=== PATIENT | female | born 1955 | race Caucasian/White ===

== ENCOUNTER → 2018-09-02 11:48 | Outpatient (CLI) | payer MEDICARE, SELFPAY ==
--- NOTE | 2018-09-02 | DI.MG.S_ITS ---
BILATERAL DIGITAL SCREENING MAMMOGRAM 3D/2D WITH CAD: 09/02/2018 CLINICAL: Routine screening. No prior exams were available for comparison. There are scattered fibroglandular elements in both breasts. Current study was also evaluated with a Computer Aided Detection (CAD) system. No significant masses, calcifications, or other findings are seen in either breast. IMPRESSION: NEGATIVE There is no mammographic evidence of malignancy. A 1 year screening mammogram is recommended. This exam was interpreted at Station ID: [id number]. NOTE: For mammograms, a report in lay terms will be sent to the patient. Approximately 15% of breast malignancies will not be visualized mammographically. In the management of a palpable breast mass, a negative mammogram must not discourage biopsy of a clinically suspicious lesion. Electronically Signed By: Lovely ro/harlan:09/02/2018 12:35:02 letter sent: Normal Exam ACR BI-RADS Category 1: Negative 3341F
== END ==
PROVIDERS: Visit Provider Student in an Organized Health Care Education/Training Program
DX: Z12.31 Encounter for screening mammogram for malignant neoplasm of breast (principal)
CPT/HCPCS: 77063; 77067

== ENCOUNTER → 2018-11-21 08:05 | Outpatient (CLI) | payer MEDICARE, SELFPAY ==
[2018-11-21 09:39] LABS: Alanine Aminotransferase 9 IU/L (9-52); Albumin 4.1 g/dL (3.5-5.0); Albumin Globulin Ratio 1.5 (1.0-2.8); Alkaline Phosphatase 63 U/L (38-126); Aspartate Aminotransferase 23 IU/L (14-36); BUN Creatinine Ratio 23.8 (6-22); Bilirubin Total 0.6 mg/dL (0.2-1.3); Blood Urea Nitrogen 19 mg/dL (7-17); Calcium 9.5 mg/dL (8.4-10.2); Carbon Dioxide 27 mmol/L (22-32); Chloride 105 mmol/L (98-107); Cholesterol 229 mg/dL (140-199); Estimated Glomerular Filt Rate > 60.0 mL/min (>60); Globulin 2.7 g/dL (1.7-4.1); Glucose 102 mg/dL (80-110); HDL Cholesterol 60 mg/dL (40-60); HEMOLYSIS < 15 (0-50); LDL Cholesterol Calculated 159 mg/dL (<100); Potassium 4.6 mmol/L (3.4-5.1); Sodium 139 mmol/L (137-145); Total Protein 6.8 g/dL (6.3-8.2); Triglycerides 50 mg/dL (35-150)
[2018-11-21 10:47] LABS: TSH w/ Reflex to FT4 1.53 uIU/mL (0.47-4.68)
== END ==
PROVIDERS: Visit Provider Student in an Organized Health Care Education/Training Program
DX: Z13.220 Encounter for screening for lipoid disorders (principal); Z13.228 Encounter for screening for other metabolic disorders
CPT/HCPCS: 36415; 80053; 80061; 84443

== ENCOUNTER 2018-12-14 07:25 | Day surgery (SDC) | payer MEDICARE, SELFPAY ==
[2018-12-14 07:43] VITALS: BMI 30.1
[2018-12-14 07:49] VITALS: BP 124/79; PULSE 52; RESP 17; TEMP 36.4; O2SAT 97
--- NOTE | 2018-12-14 08:33 | PM.HP.1 ---
History of Present Illness Chief complaint: [id number] SCREENING COLONOSCOPY Patient History Social History household members: none Family & Social History Social History: household members none Review of Systems Review of Systems All systems reviewed & are unremarkable except as noted in HPI and below Exam Vital Signs (past 8 hours): - 12/14/18 07:49 Temperature 97.6 F Pulse Rate 52 L Respiratory Rate 17 Blood Pressure 124/79 Pulse Oximetry 97 Oxygen Delivery Method Room Air Narrative Exam Narrative: Awake alert oriented x3, no acute distress, pupils round reactive to light, heart regular rate rhythm, lungs clear, abdomen nondistended nontender active bowel sounds, no lower extremity edema Assessment & Plan Assessment & Plan narrative: Screening colonoscopy
[2018-12-14] MEDS: SODIUM CHLORIDE 0.9% 1,000 ML 200 ML IV (08:38)
[2018-12-14] MEDS: fentaNYL 250 MCG/5 ML INJ IV (08:55)
[2018-12-14] MEDS: MIDAZOLAM 5 MG/5 ML VIAL IV (08:56)
--- NOTE | 2018-12-14 09:01 | PM.OP.ENDO ---
Operative Date/Time/Diagnoses Date of procedure: 12/14/18 Procedure & Clinicians Study performed: Colonoscopy Moderate conscious sedation was administered by the endoscopy nurse and supervised by the endoscopist. The following parameters were monitored: Oxygen saturation, heart rate, blood pressure, and response to care. Sedation: 5 mg midazolam, 150 micro g fentanyl Indications: Screening colonoscopy. This is the patient's 1st screening colonoscopy Procedure Notes Procedure in detail: Prior to the procedure, history and physical was performed, and patient medications and allergies were reviewed. Preprocedure nursing history and assessment was reviewed. Patient identification and proposed procedure were verified by the physician and nurse in the procedure room. The physical status of the patient was reassessed after the procedure. After informed consent was obtained including risks, benefits, and alternatives, the scope was passed under direct vision. Throughout the procedure, the patient's blood pressure, pulse, and oxygen saturations were monitored continuously. The colonoscope was introduced through the anus and advanced to the cecum as identified by the appendiceal orifice and ileocecal valve. The patient tolerated the procedure well. Bowel prep was deemed inadequate to detect polyps greater than 5 mm. Perianal and digital rectal examination were normal. Retroflexion in the rectum was unrevealing There was a large amount of liquid and semi-solid stool throughout the entire colon characterized by seeds, nuts, and stool. Lavage was attempted but did not result in adequate clearance. Impression: Inadequate bowel prep No specimens collected Sedation minutes: 19 Complications: other (EBL none. No complications) Plan for aftercare: Repeat colonoscopy in 1 year for screening purposes. Utilize an extended bowel prep Resume home medications Resume previous diet Discharge home with escort
[2018-12-14 09:06] VITALS: BP 104/72; PULSE 53; RESP 12; TEMP 36.1; O2SAT 94
[2018-12-14 09:11] VITALS: BP 97/68; PULSE 52; RESP 11; O2SAT 95
[2018-12-14 09:17] VITALS: BP 105/67; PULSE 54; RESP 10; TEMP 36.3; O2SAT 96
== END 2018-12-14 09:36 | disposition home or self-care (01) ==
PROVIDERS: PCP Student in an Organized Health Care Education/Training Program; Visit Provider Internal Medicine
PROC: 0DJD8ZZ Inspection of Lower Intestinal Tract, Via Natural or Artificial Opening Endoscopic (ICD-10-PCS; CPT 45378; principal; 2018-12-14 08:30)
DX: Z12.11 Encounter for screening for malignant neoplasm of colon (principal)
CPT/HCPCS: G0121; J2250; J3010

== ENCOUNTER → 2020-01-08 15:29 | Outpatient (CLI) | payer MEDICARE, SELFPAY ==
[2020-01-10 06:47] LABS: COVID19 Sendout Not Detected (Not Detect)
== END ==
PROVIDERS: PCP Student in an Organized Health Care Education/Training Program; Visit Provider Nurse Practitioner
DX: Z01.812 Encounter for preprocedural laboratory examination (principal)
CPT/HCPCS: 87635

== ENCOUNTER 2020-01-11 12:54 | Day surgery (SDC) | payer MEDICARE, SELFPAY ==
[2020-01-11 13:11] VITALS: BP 108/74; PULSE 67; RESP 16; TEMP 36.5; O2SAT 96; BMI 31.5
[2020-01-11] MEDS: LACTATED RINGERS 1,000 ML 200 ML IV (13:28)
--- NOTE | 2020-01-11 13:32 | PM.HP.1 ---
History of Present Illness History of Present Illness Date Patient Seen: 01/11/20 Time Patient Seen: 13:32 Chief complaint: [id number] SCREENING COLONOSCOPY Narrative: The patient presents for colorectal sreening. She had a previous attempted colonoscopy a year ago but was incomplete due to poor prep. No personal or family history of colon cancer. On further history denies any recent gastrointestinal symptoms. No nausea, vomiting, abdominal pain, loss of appetite, unexplained weight loss, change in bowel habits, diarrhea, constipation, melena, hematochezia, or bright red blood per rectum. Patient History Family & Social History Social History: household members none Tobacco & Substance use: Smoking Status Never smoker alcohol intake frequency a few times a month Substance Use Type does not use Meds Home Medications and Allergies Home Medications Medication Instructions Recorded Confirmed Type No Known Home Medications 12/14/18 01/11/20 History Allergies Allergy/AdvReac Type Severity Reaction Status Date / Time No Known Drug Allergies Allergy Verified 01/11/20 13:10 Review of Systems Review of Systems Narrative: A 10 point review of systems is negative except as noted in the HPI Exam Vital Signs (past 8 hours): - 01/11/20 13:11 Temperature 97.7 F Pulse Rate 67 Respiratory Rate 16 Blood Pressure 108/74 Pulse Oximetry 96 Oxygen Delivery Method Room Air Narrative Exam Narrative: General-no acute distress, well nourished HEENT-moist mucous membranes, no scleral icterus Neck-supple, no lymphadenopathy Chest- non labored respirations, clear to auscultation bilaterally Cardiac-regular rate no peripheral edema Abdomen-soft, nontender, non distended Extremities-warm, well perfused Neurological-alert and oriented, no focal deficits Assessment & Plan Assessment and plan (1) Screening for colon cancer: Status: Acute Assessment & Plan narrative: The patient requires colorectal screening and colonoscopy is recommended. Technical details were discussed. Risks, benefits, alternatives explained. Risks including but not limited to myocardial infarction, aspiration, bleeding, pain, missed lesion, incomplete examination, need for further radiographic studies, colonic perforation, and need for major abdominal surgery were discussed. All questions were answered to their satisfaction, and they are in agreement with this plan. COVID-19 COVID-19 status: Negative
--- NOTE | 2020-01-11 13:59 | PM.OP.ENDO ---
Operative Date/Time/Diagnoses Date of procedure: 01/11/20 Time of procedure: 14:00 Pre-op diagnosis: Screening colonoscopy Post-op diagnosis: same Procedure & Clinicians Study performed: Colonoscopy Same procedure as scheduled: Yes Indications: 64-year-old woman presents for routine screening colonoscopy Surgeon: Zhang Barker Procedure Notes SCOAP/Timeout: Performed Procedure in detail: Patient placed in left lateral decubitus position. Time out was performed. Procedural sedation was administered with Versed and Fentanyl. A rectal exam demonstrated no external hemorrhoids no internal masses. Colonoscopy scope was placed into the rectum and advanced through the colon to the cecum. The ileocecal valve was identified. The scope was then slowly withdrawn examining colon thoroughly in all directions. The colonoscopy was notable for the following 1. No masses or polyps 2. Quality of prep excellent Scope withdrawal time: 7 Sedation minutes: 17 Specimen(s): none sent Complications: none Impression: Normal colonoscopy Post-procedure Recommendations: Colonscopy in 10 years Disposition: same day surgery
[2020-01-11 14:00] VITALS: BP 97/68; PULSE 56; RESP 12; TEMP 36.6; O2SAT 95
[2020-01-11] MEDS: MIDAZOLAM 5 MG/5 ML VIAL IV (14:00)
[2020-01-11] MEDS: fentaNYL 250 MCG/5 ML INJ IV (14:01)
[2020-01-11 14:05] VITALS: BP 100/66; PULSE 55; RESP 12; O2SAT 94
[2020-01-11 14:10] VITALS: BP 100/64; PULSE 54; RESP 12; O2SAT 95
[2020-01-11 14:15] VITALS: BP 104/73; PULSE 66; RESP 18; O2SAT 95
== END 2020-01-11 14:25 | disposition home or self-care (01) ==
PROVIDERS: PCP Student in an Organized Health Care Education/Training Program; Referring Provider Student in an Organized Health Care Education/Training Program; Visit Provider Surgery
PROC: 0DJD8ZZ Inspection of Lower Intestinal Tract, Via Natural or Artificial Opening Endoscopic (ICD-10-PCS; CPT 45378; principal; 2020-01-11 13:45)
DX: Z12.11 Encounter for screening for malignant neoplasm of colon (principal)
CPT/HCPCS: G0121; 99152; J2250; J3010

== ENCOUNTER → 2021-01-02 11:50 | Outpatient (CLI) | payer OTHER, SELFPAY | PROVIDERS: PCP Student in an Organized Health Care Education/Training Program; Referring Provider Student in an Organized Health Care Education/Training Program; Visit Provider Student in an Organized Health Care Education/Training Program | DX: Z78.0 Asymptomatic menopausal state (principal); Z13.820 Encounter for screening for osteoporosis; M85.851 Other specified disorders of bone density and structure, right thigh | CPT/HCPCS: 77080 ==

== ENCOUNTER → 2022-01-16 11:23 | Outpatient (CLI) | payer OTHER, SELFPAY ==
--- NOTE | 2022-01-16 | DI.MG.S_ITS ---
BILATERAL DIGITAL SCREENING MAMMOGRAM 3D/2D WITH CAD: 01/16/2022 CLINICAL: Routine screening. Comparison is made to exam dated: 09/02/2018 mammogram - [facility]. There are scattered fibroglandular elements in both breasts. Current study was also evaluated with a Computer Aided Detection (CAD) system. There are benign calcifications in both breasts. No significant masses, calcifications, or other findings are seen in either breast. There has been no significant interval change. IMPRESSION: BENIGN There is no mammographic evidence of malignancy. A 1 year screening mammogram is recommended. Based on the Tyrer Cuzick model (a risk assessment model) the patient's lifetime risk is 6.2% and her 10 year risk is 3.4%. According to the ACR, ACS, and NCCN guidelines, an annual breast MRI exam along with mammogram is recommended if the patient's lifetime risk is 20% or greater. This exam was interpreted at Station ID: [id number]. NOTE: For mammograms, a report in lay terms will be sent to the patient. Approximately 15% of breast malignancies will not be visualized mammographically. In the management of a palpable breast mass, a negative mammogram must not discourage biopsy of a clinically suspicious lesion. Electronically Signed By: Diana marie/harlan:01/16/2022 16:28:15 letter sent: Normal Exam ACR BI-RADS Category 2: Benign Finding(s) 3342F
== END ==
PROVIDERS: PCP Student in an Organized Health Care Education/Training Program; Referring Provider Student in an Organized Health Care Education/Training Program; Visit Provider Student in an Organized Health Care Education/Training Program
DX: Z12.31 Encounter for screening mammogram for malignant neoplasm of breast (principal)
CPT/HCPCS: 77063; 77067

== ENCOUNTER → 2022-08-31 17:50 | Outpatient (CLI) | payer OTHER, SELFPAY | PROVIDERS: PCP Student in an Organized Health Care Education/Training Program; Visit Provider Registered Nurse | DX: R30.0 Dysuria (principal) | CPT/HCPCS: 87086 ==

== ENCOUNTER 2022-12-23 07:29 | Emergency (ER) | payer OTHER, SELFPAY ==
[2022-12-23] VITALS (101 sets, daily range): BP systolic 124–161; BP diastolic 67–96; PULSE 75–103; RESP 10–48; TEMP 36.4; O2SAT 88–95; BMI 29.4
--- NOTE | 2022-12-23 07:33 | ED.GENADULT ---
HPI - General Adult General Chief complaint: Shortness of Breath/Dyspnea Stated complaint: poss covid+ getting worse Time Seen by Provider: 12/23/22 07:32 History of Present Illness HPI narrative: 67F nonsmoker presents with family and the chief complaint of gradually worsening SOB over the past two weeks. She is short of breath sitting still and worse with exertion. She is had a persistent dry and hacking cough without any sputum production. She denies chest pain but feels tight. She is not dizzy or lightheaded has become generally weak. She has had subjective fever and chills along with body aches. About 2 weeks ago it started more with GI symptoms including nausea, vomiting and diarrhea which has resolved but the respiratory symptoms persist. She denies recent travel, history of blood clot, swelling of her lower extremities or other symptoms. She denies exposure to obviously ill people Related Data Allergies Allergy/AdvReac Type Severity Reaction Status Date / Time No Known Drug Allergies Allergy Verified 12/23/22 11:26 Review of Systems Review of Systems Narrative: GENERAL: See HPI HEENT: Denies sinus pain, ear pain, sore throat, difficulty swallowing, dizziness. RESPIRATORY: See HPI CARDIOVASCULAR: Denies chest pain, palpitations, orthopnea, edema, GASTROINTESTINAL: See HPI : Denies dysuria, frequency, incontinence, hematuria, urinary retention. MUSCULOSKELETAL: denies weakness, joint pain, or bony pain SKIN: Denies rash, skin lesions, or other NEUROLOGIC: Denies weakness, headache, numbness, change in speech, confusion, seizures, incoordination. PSYCHIATRIC: No concerning psychosocial issues. 12 point review of systems is negative except for those stated above Patient History Social History household members: none Smoking Status: Never smoker Smoking Status: Never smoker alcohol intake frequency: a few times a month Substance Use Type: does not use Exam Narrative Exam Narrative: GENERAL: [67] year old patient appears stated age. Well-developed patient, in mild distress. Conversational dyspnea is present, room air pulse ox dips into the upper 80s HEAD: Atraumatic. Normocephalic. EYES: Pupils equal round and reactive. Extraocular motions intact. No scleral icterus. No injection or drainage. ENT: Nose without bleeding, purulent drainage. Throat without erythema, tonsillar hypertrophy or exudate. Airway patent. NECK: Trachea midline. Non tender CARDIOVASCULAR: Regular rate and rhythm without murmurs, gallops, or rubs. RESPIRATORY: Clear to auscultation. Breath sounds equal bilaterally. No wheezes, rales, or rhonchi. There is some increased work of breathing as she develops conversational dyspnea GASTROINTESTINAL: Abdomen soft, non-tender, nondistended. EXTREMITIES: No edema or joint tenderness. BACK: Nontender without deformity or crepitance. No flank tenderness. NEURO: AOx3. SKIN: No rash or erythema of visible areas Initial Vital Signs Initial Vital Signs: Vital Signs Temperature 97.6 F 12/23/22 07:34 Pulse Rate 95 H 12/23/22 07:34 Respiratory Rate 18 12/23/22 07:34 Blood Pressure 134/67 12/23/22 07:34 Pulse Oximetry 91 12/23/22 07:34 Oxygen Delivery Method Room Air 12/23/22 07:34 Course Course Course Narrative: Orin Score for Pulmonary Embolism Complications from [facility] on 12/23/2022 All calculations should be rechecked by clinician prior to use RESULT SUMMARY: 4 points Orin Score Stage II Intermediate risk 18 % PE-related complications ( from PE, hemodynamic collapse, or recurrent nonfatal PE) at 30 days 6.8% PE-related mortality at 30 days INPUTS: Systolic BP ?> 0 = >100 mm Hg Elevated cardiac troponin ?> 2 = Yes RV dysfunction ?> 2 = Yes Heart rate, beats/min ?> 0 = <110 Simplified PESI (Pulmonary Embolism Severity Index) from [facility] on 12/23/2022 All calculations should be rechecked by clinician prior to use RESULT SUMMARY: High risk 8.9% risk of in the ?High? risk group (>0 points) INPUTS: Age, years ?> 0 = <=0 History of cancer ?> 1 = Yes History of chronic cardiopulmonary disease ?> 0 = No Heart rate, bpm ?> 0 = <110 Systolic BP, mmHg ?> 0 = >=00 O? saturation ?> 1 = <90% Orders Ordered: ED Orders 12/23/22 07:55 C-Reactive Protein Quant Stat Complete Blood Count AUTO DIFF Stat Comprehensive Metabolic Panel Stat D Dimer Stat Magnesium Stat NT-proBNP (BNP-Adult 18+) Stat PTT Partial Thromboplastin Arian Q6H Procalcitonin Stat Respiratory Panel (Film Array) Stat Troponin & CK Cardiac Panel Stat 12/23/22 08:38 ABG [Arterial Blood Gas] Stat 12/23/22 08:43 CT angio chest PE protocol Stat 12/23/22 15:30 PTT Partial Thromboplastin Arian Q6H 12/23/22 15:50 PTT Partial Thromboplastin Arian Stat 12/23/22 21:30 PTT Partial Thromboplastin Arian Q6H 12/24/22 03:30 PTT Partial Thromboplastin Arian Q6H 12/24/22 05:00 Hemoglobin and Hematocrit DAILY Platelet Count DAILY 12/25/22 05:00 Hemoglobin and Hematocrit DAILY Platelet Count DAILY Enoxaparin Sodium (Enoxaparin 100 Mg/Ml Syringe) 95 mg 1 mg/kg (95 mg) SUBCUT BID [facility] Last Admin: 12/23/22 13:08 Dose: 95 mg Documented By: CARLOS Discontinued Medications Enoxaparin Sodium (Enoxaparin 40 Mg/0.4 Ml Syringe) 95 mg 1 mg/kg (95 mg) SUBCUT BID [facility] Last Admin: 12/23/22 13:38 Dose: Not Given Documented By: CHRISTINE Heparin Sodium (Porcine) (Heparin 5,000 Unit/Ml Vial) 7,400 unit 80 unit/kg (7400 unit) IV NOW ONE Stop: 12/23/22 09:29 Last Admin: 12/23/22 09:49 Dose: 7,400 unit Documented By: CHRISTINE Heparin Sodium/Dextrose (Heparin Drip) 25,000 unit in 500 mls @ 24 mls/hr IV CONT MANNY; Protocol Last Titration: 12/23/22 11:55 Dose: 0 units/hr, 0 mls/hr Documented By: CARLOS Co-signed By: CHRISTINE Admin: 12/23/22 09:47 Dose: 1,200 units/hr, 24 mls/hr Documented By: CHRISTINE Co-signed By: CARLOS Consultations Consultation #2: call back from Dr. Moisés AMADOR (ICU ) agrees with need for transfer, it seems that they likely do have a bed available, request I speak with the hospitalist. hospitalist happy to accept in transfer Vital Signs Vital signs: Vital Signs - 8 hr 12/23/22 08:55 12/23/22 09:11 12/23/22 09:12 Pulse Rate 103 H Respiratory Rate Blood Pressure 151/77 H Pulse Oximetry 93 Oxygen Delivery Method Oxygen Flow Rate 12/23/22 09:12 12/23/22 09:15 12/23/22 09:20 Pulse Rate 97 H 95 H 97 H Respiratory Rate 40 H 35 H 21 Blood Pressure Pulse Oximetry 88 L 94 93 Oxygen Delivery Method Oxygen Flow Rate 12/23/22 09:25 12/23/22 09:30 12/23/22 09:30 Pulse Rate 94 H 96 H Respiratory Rate 38 H 33 H Blood Pressure 157/79 H Pulse Oximetry 92 92 Oxygen Delivery Method Nasal Cannula Nasal Cannula Oxygen Flow Rate 4 4 12/23/22 09:35 12/23/22 09:40 12/23/22 09:45 Pulse Rate 94 H 91 H 90 Respiratory Rate 37 H 21 30 H Blood Pressure Pulse Oximetry 93 94 92 Oxygen Delivery Method Oxygen Flow Rate 12/23/22 09:50 12/23/22 09:55 12/23/22 10:00 Pulse Rate 91 H 91 H 91 H Respiratory Rate 35 H 28 H 48 H Blood Pressure Pulse Oximetry 93 93 92 Oxygen Delivery Method Nasal Cannula Oxygen Flow Rate 4 12/23/22 10:02 12/23/22 10:02 12/23/22 10:05 Pulse Rate 92 H 94 H Respiratory Rate 29 H 41 H Blood Pressure 137/85 Pulse Oximetry 92 92 Oxygen Delivery Method Oxygen Flow Rate 12/23/22 10:10 12/23/22 10:15 12/23/22 10:20 Pulse Rate 90 89 82 Respiratory Rate 25 H 33 H 25 H Blood Pressure Pulse Oximetry 93 93 93 Oxygen Delivery Method Nasal Cannula Nasal Cannula Oxygen Flow Rate 4 4 12/23/22 10:25 12/23/22 10:30 12/23/22 10:30 Pulse Rate 82 84 Respiratory Rate 22 22 Blood Pressure 143/77 H Pulse Oximetry 93 92 Oxygen Delivery Method Oxygen Flow Rate 12/23/22 10:35 12/23/22 10:40 12/23/22 10:45 Pulse Rate 82 84 87 Respiratory Rate 32 H 28 H 34 H Blood Pressure Pulse Oximetry 93 93 94 Oxygen Delivery Method Nasal Cannula Oxygen Flow Rate 4 12/23/22 10:50 12/23/22 10:55 12/23/22 11:00 Pulse Rate 86 85 Respiratory Rate 33 H 34 H Blood Pressure 145/78 H Pulse Oximetry 95 95 Oxygen Delivery Method Oxygen Flow Rate 12/23/22 11:00 12/23/22 11:05 12/23/22 11:15 Pulse Rate 86 84 Respiratory Rate 27 H 30 H Blood Pressure 139/82 Pulse Oximetry 92 92 Oxygen Delivery Method Oxygen Flow Rate 12/23/22 11:15 12/23/22 11:20 12/23/22 11:25 Pulse Rate 85 93 H 97 H Respiratory Rate 29 H 29 H 29 H Blood Pressure Pulse Oximetry 95 94 94 Oxygen Delivery Method Nasal Cannula Oxygen Flow Rate 4 12/23/22 11:30 12/23/22 11:30 12/23/22 11:35 Pulse Rate 92 H 85 Respiratory Rate 22 29 H Blood Pressure 155/90 H Pulse Oximetry 90 L 94 Oxygen Delivery Method Nasal Cannula Nasal Cannula Oxygen Flow Rate 4 4 12/23/22 11:40 12/23/22 11:45 12/23/22 11:50 Pulse Rate 84 81 89 Respiratory Rate 29 H 36 H 36 H Blood Pressure Pulse Oximetry 93 93 91 Oxygen Delivery Method Oxygen Flow Rate 12/23/22 11:55 12/23/22 12:00 12/23/22 12:00 Pulse Rate 85 82 Respiratory Rate 35 H 40 H Blood Pressure 128/78 Pulse Oximetry 93 93 Oxygen Delivery Method Nasal Cannula Oxygen Flow Rate 4 12/23/22 12:05 12/23/22 12:15 12/23/22 12:20 Pulse Rate 85 86 87 Respiratory Rate 37 H Blood Pressure Pulse Oximetry 92 95 95 Oxygen Delivery Method Nasal Cannula Oxygen Flow Rate 4 12/23/22 12:25 12/23/22 12:30 12/23/22 12:30 Pulse Rate 86 85 Respiratory Rate 44 H Blood Pressure 128/96 H Pulse Oximetry 94 94 Oxygen Delivery Method Oxygen Flow Rate 12/23/22 12:35 12/23/22 12:40 12/23/22 12:45 Pulse Rate 86 83 84 Respiratory Rate 35 H 37 H 26 H Blood Pressure Pulse Oximetry 94 93 92 Oxygen Delivery Method Nasal Cannula Nasal Cannula Oxygen Flow Rate 4 4 12/23/22 12:50 12/23/22 12:55 12/23/22 13:00 Pulse Rate 86 86 Respiratory Rate 34 H 36 H Blood Pressure 161/82 H Pulse Oximetry 93 93 Oxygen Delivery Method Nasal Cannula Oxygen Flow Rate 4 12/23/22 13:00 12/23/22 13:05 12/23/22 13:10 Pulse Rate 83 82 81 Respiratory Rate 38 H 35 H 30 H Blood Pressure Pulse Oximetry 93 93 95 Oxygen Delivery Method Nasal Cannula Oxygen Flow Rate 4 12/23/22 13:15 12/23/22 13:20 12/23/22 13:25 Pulse Rate 82 82 82 Respiratory Rate 31 H 35 H 40 H Blood Pressure Pulse Oximetry 94 93 93 Oxygen Delivery Method Oxygen Flow Rate 12/23/22 13:30 12/23/22 13:30 12/23/22 13:35 Pulse Rate 81 84 Respiratory Rate 34 H 21 Blood Pressure 140/86 Pulse Oximetry 94 92 Oxygen Delivery Method Oxygen Flow Rate 12/23/22 13:40 12/23/22 13:45 12/23/22 13:50 Pulse Rate 82 80 80 Respiratory Rate 12 28 H 26 H Blood Pressure Pulse Oximetry 92 93 93 Oxygen Delivery Method Nasal Cannula Oxygen Flow Rate 4 12/23/22 13:55 12/23/22 14:00 12/23/22 14:00 Pulse Rate 79 81 Respiratory Rate 22 37 H Blood Pressure 128/81 Pulse Oximetry 93 93 Oxygen Delivery Method Oxygen Flow Rate 12/23/22 14:05 12/23/22 14:10 12/23/22 14:15 Pulse Rate 78 77 77 Respiratory Rate 29 H 25 H 25 H Blood Pressure Pulse Oximetry 94 93 93 Oxygen Delivery Method Oxygen Flow Rate 12/23/22 14:20 12/23/22 14:25 12/23/22 14:30 Pulse Rate 77 80 Respiratory Rate 26 H 26 H Blood Pressure 126/76 Pulse Oximetry 92 92 Oxygen Delivery Method Oxygen Flow Rate 12/23/22 14:40 12/23/22 14:45 12/23/22 14:55 Pulse Rate 79 78 77 Respiratory Rate 29 H 10 L 27 H Blood Pressure Pulse Oximetry 92 92 94 Oxygen Delivery Method Oxygen Flow Rate 12/23/22 15:00 12/23/22 15:00 12/23/22 15:05 Pulse Rate 80 80 Respiratory Rate 35 H 25 H Blood Pressure 124/78 Pulse Oximetry 94 93 Oxygen Delivery Method Nasal Cannula Nasal Cannula Oxygen Flow Rate 4 4 12/23/22 15:10 12/23/22 15:15 12/23/22 15:20 Pulse Rate 84 84 81 Respiratory Rate 31 H 32 H 37 H Blood Pressure Pulse Oximetry 94 94 94 Oxygen Delivery Method Oxygen Flow Rate 12/23/22 15:25 12/23/22 15:30 12/23/22 15:30 Pulse Rate 81 81 Respiratory Rate 30 H Blood Pressure 140/82 Pulse Oximetry 92 92 Oxygen Delivery Method Nasal Cannula Oxygen Flow Rate 4 12/23/22 15:35 12/23/22 15:40 12/23/22 15:45 Pulse Rate 82 79 79 Respiratory Rate 29 H 28 H 46 H Blood Pressure Pulse Oximetry 93 93 93 Oxygen Delivery Method Nasal Cannula Oxygen Flow Rate 4 12/23/22 15:50 12/23/22 15:55 12/23/22 16:00 Pulse Rate 75 76 Respiratory Rate 27 H 27 H Blood Pressure 131/79 Pulse Oximetry 93 93 Oxygen Delivery Method Nasal Cannula Oxygen Flow Rate 4 12/23/22 16:00 12/23/22 16:05 12/23/22 16:10 Pulse Rate 80 75 76 Respiratory Rate 38 H 34 H 34 H Blood Pressure Pulse Oximetry 93 93 93 Oxygen Delivery Method Nasal Cannula Oxygen Flow Rate 4 12/23/22 16:15 12/23/22 16:20 Pulse Rate 77 80 Respiratory Rate 30 H 38 H Blood Pressure Pulse Oximetry 93 94 Oxygen Delivery Method Oxygen Flow Rate Medical Decision Making Lab Data 12/23/22 07:55 12/23/22 07:55 Labs: Lab Results 12/23/22 12/23/22 12/23/22 Range/Units 07:55 07:55 07:55 WBC 11.2 H (4.5-11.0) X10^3/uL RBC 4.50 (4.0-5.2) X10^6/uL Hgb 13.1 (12.0-16.0) g/dL Hct 38.4 (36-46) % MCV 85.4 (80-100) fL MCH 29.0 (26-34) PG MCHC 34.0 (30-36) % RDW 13.0 (11.6-14.8) % Plt Count 279 (150-400) X10^3/uL Neut % (Auto) 81.5 H (50-75) % Lymph % (Auto) 10.7 L (25-40) % [place] % (Auto) 5.8 (3-14) % Eos % (Auto) 1.7 L (2-4) % Baso % (Auto) 0.3 (0-2) % Neut # (Auto) 9100 H (6735-4298) /uL Lymph # (Auto) 1200 (0572-2340) /uL [place] # (Auto) 600 (0-900) /uL Eos # (Auto) 200 (0-450) /uL Baso # (Auto) 0 (0-100) /uL APTT (26-36) SECONDS D-Dimer 90255 H (<500) ng/ml ABG pH (7.35-7.45) ABG pCO2 (35-45) mmHg ABG pO2 (80-100) mmHg ABG HCO3 (23-27) mmol/L ABG Total CO2 (23-27) mmol/L ABG O2 Saturation (95-100) % ABG Base Excess (-2-3) mmol/L FiO2 Sodium (137-145) mmol/L Potassium (3.4-5.1) mmol/L Chloride (98-107) mmol/L Carbon Dioxide (22-32) mmol/L BUN (7-17) mg/dL Creatinine (0.52-1.04) mg/dL Estimated GFR (>60) mL/min BUN/Creatinine Ratio (6-22) Glucose (80-110) mg/dL Calcium (8.4-10.2) mg/dL Magnesium (1.6-2.3) mg/dL Total Bilirubin (0.2-1.3) mg/dL AST (14-36) IU/L ALT (<35) IU/L Alkaline Phosphatase (38-126) U/L Total Creatine Kinase (30-135) U/L Troponin I (0.01-0.034) ng/mL C-Reactive Protein (<1.0) mg/dL NT-Pro-B Natriuret Pep (<125) pg/mL Total Protein (6.3-8.2) g/dL Albumin (3.5-5.0) g/dL Globulin (1.7-4.1) g/dL Albumin/Globulin Ratio (1.0-2.8) Procalcitonin 0.05 (<0.5) ng/mL Chlamy pneumoniae PCR (Not Detect) Adenovirus (PCR) (Not Detect) B. pertussis DNA (PCR) (Not Detecte) B.parapertussis DNA PCR (Not Detecte) Coronavirus OC43 (PCR) (Not Detect) Coronavirus HKU1 (PCR) (Not Detect) Coronavirus 229E (PCR) (Not Detect) SARS-CoV-2 (PCR) (Not Detecte) Coronavirus NL63 (PCR) (Not Detect) Human Metapneumovir PCR (Not Detect) Influenza Type A (PCR) (Not Detect) Influenza Type B (PCR) (Not Detect) M. pneumoniae (PCR) (Not Detect) Parainfluenza 1 (PCR) (Not Detect) Parainfluenza 2 (PCR) (Not Detect) Parainfluenza 3 (PCR) (Not Detect) Parainfluenza 4 (PCR) (Not Detect) RSV (PCR) (Not Detect) Entero/Rhino (PCR) (Not Detect) 12/23/22 12/23/22 12/23/22 Range/Units 07:55 07:55 07:55 WBC (4.5-11.0) X10^3/uL RBC (4.0-5.2) X10^6/uL Hgb (12.0-16.0) g/dL Hct (36-46) % MCV (80-100) fL MCH (26-34) PG MCHC (30-36) % RDW (11.6-14.8) % Plt Count (150-400) X10^3/uL Neut % (Auto) (50-75) % Lymph % (Auto) (25-40) % [place] % (Auto) (3-14) % Eos % (Auto) (2-4) % Baso % (Auto) (0-2) % Neut # (Auto) (5175-0394) /uL Lymph # (Auto) (6350-7893) /uL [place] # (Auto) (0-900) /uL Eos # (Auto) (0-450) /uL Baso # (Auto) (0-100) /uL APTT 31 (26-36) SECONDS D-Dimer (<500) ng/ml ABG pH (7.35-7.45) ABG pCO2 (35-45) mmHg ABG pO2 (80-100) mmHg ABG HCO3 (23-27) mmol/L ABG Total CO2 (23-27) mmol/L ABG O2 Saturation (95-100) % ABG Base Excess (-2-3) mmol/L FiO2 Sodium 135 L (137-145) mmol/L Potassium 3.9 (3.4-5.1) mmol/L Chloride 102 (98-107) mmol/L Carbon Dioxide 26 (22-32) mmol/L BUN 8 (7-17) mg/dL Creatinine 0.58 (0.52-1.04) mg/dL Estimated GFR > 60 (>60) mL/min BUN/Creatinine Ratio 13.8 (6-22) Glucose 125 H (80-110) mg/dL Calcium 9.2 (8.4-10.2) mg/dL Magnesium 2.2 (1.6-2.3) mg/dL Total Bilirubin 0.7 (0.2-1.3) mg/dL AST 29 (14-36) IU/L ALT 25 (<35) IU/L Alkaline Phosphatase 89 (38-126) U/L Total Creatine Kinase 30 (30-135) U/L Troponin I 0.106 H (0.01-0.034) ng/mL C-Reactive Protein 6.0 H (<1.0) mg/dL NT-Pro-B Natriuret Pep 87 (<125) pg/mL Total Protein 6.9 (6.3-8.2) g/dL Albumin 3.8 (3.5-5.0) g/dL Globulin 3.1 (1.7-4.1) g/dL Albumin/Globulin Ratio 1.2 (1.0-2.8) Procalcitonin (<0.5) ng/mL Chlamy pneumoniae PCR Not detected (Not Detect) Adenovirus (PCR) Not detected (Not Detect) B. pertussis DNA (PCR) Not detected (Not Detecte) B.parapertussis DNA PCR Not detected (Not Detecte) Coronavirus OC43 (PCR) Not detected (Not Detect) Coronavirus HKU1 (PCR) Not detected (Not Detect) Coronavirus 229E (PCR) Not detected (Not Detect) SARS-CoV-2 (PCR) Not detected (Not Detecte) Coronavirus NL63 (PCR) Not detected (Not Detect) Human Metapneumovir PCR Not detected (Not Detect) Influenza Type A (PCR) Not detected (Not Detect) Influenza Type B (PCR) Not detected (Not Detect) M. pneumoniae (PCR) Not detected (Not Detect) Parainfluenza 1 (PCR) Not detected (Not Detect) Parainfluenza 2 (PCR) Not detected (Not Detect) Parainfluenza 3 (PCR) Not detected (Not Detect) Parainfluenza 4 (PCR) Not detected (Not Detect) RSV (PCR) Not detected (Not Detect) Entero/Rhino (PCR) Not detected (Not Detect) 12/23/22 Range/Units 08:38 WBC (4.5-11.0) X10^3/uL RBC (4.0-5.2) X10^6/uL Hgb (12.0-16.0) g/dL Hct (36-46) % MCV (80-100) fL MCH (26-34) PG MCHC (30-36) % RDW (11.6-14.8) % Plt Count (150-400) X10^3/uL Neut % (Auto) (50-75) % Lymph % (Auto) (25-40) % [place] % (Auto) (3-14) % Eos % (Auto) (2-4) % Baso % (Auto) (0-2) % Neut # (Auto) (6011-5963) /uL Lymph # (Auto) (2072-6024) /uL [place] # (Auto) (0-900) /uL Eos # (Auto) (0-450) /uL Baso # (Auto) (0-100) /uL APTT (26-36) SECONDS D-Dimer (<500) ng/ml ABG pH 7.46 H (7.35-7.45) ABG pCO2 33.1 L (35-45) mmHg ABG pO2 66 L (80-100) mmHg ABG HCO3 24 (23-27) mmol/L ABG Total CO2 24 (23-27) mmol/L ABG O2 Saturation 94 L (95-100) % ABG Base Excess 0.0 (-2-3) mmol/L FiO2 36 Sodium (137-145) mmol/L Potassium (3.4-5.1) mmol/L Chloride (98-107) mmol/L Carbon Dioxide (22-32) mmol/L BUN (7-17) mg/dL Creatinine (0.52-1.04) mg/dL Estimated GFR (>60) mL/min BUN/Creatinine Ratio (6-22) Glucose (80-110) mg/dL Calcium (8.4-10.2) mg/dL Magnesium (1.6-2.3) mg/dL Total Bilirubin (0.2-1.3) mg/dL AST (14-36) IU/L ALT (<35) IU/L Alkaline Phosphatase (38-126) U/L Total Creatine Kinase (30-135) U/L Troponin I (0.01-0.034) ng/mL C-Reactive Protein (<1.0) mg/dL NT-Pro-B Natriuret Pep (<125) pg/mL Total Protein (6.3-8.2) g/dL Albumin (3.5-5.0) g/dL Globulin (1.7-4.1) g/dL Albumin/Globulin Ratio (1.0-2.8) Procalcitonin (<0.5) ng/mL Chlamy pneumoniae PCR (Not Detect) Adenovirus (PCR) (Not Detect) B. pertussis DNA (PCR) (Not Detecte) B.parapertussis DNA PCR (Not Detecte) Coronavirus OC43 (PCR) (Not Detect) Coronavirus HKU1 (PCR) (Not Detect) Coronavirus 229E (PCR) (Not Detect) SARS-CoV-2 (PCR) (Not Detecte) Coronavirus NL63 (PCR) (Not Detect) Human Metapneumovir PCR (Not Detect) Influenza Type A (PCR) (Not Detect) Influenza Type B (PCR) (Not Detect) M. pneumoniae (PCR) (Not Detect) Parainfluenza 1 (PCR) (Not Detect) Parainfluenza 2 (PCR) (Not Detect) Parainfluenza 3 (PCR) (Not Detect) Parainfluenza 4 (PCR) (Not Detect) RSV (PCR) (Not Detect) Entero/Rhino (PCR) (Not Detect) Urine Dip Bedside Urine Glucose Negative Bedside Urine Bilirubin - Negative Bedside Urine Ketone - Negative Urine Specific [place] 1.010 Bedside Urine Occult Blood - Negative Bedside Urine pH 6.0 Bedside Urine Protein - Negative Bedside Urine Urobilinogen - Negative Bedside Urine Nitrite - Negative Bedside Urine Leukocytes - Negative Esterase Point of care testing: Urine Dip Bedside Urine Glucose Negative Bedside Urine Bilirubin - Negative Bedside Urine Ketone - Negative Urine Specific [place] 1.010 Bedside Urine Occult Blood - Negative Bedside Urine pH 6.0 Bedside Urine Protein - Negative Bedside Urine Urobilinogen - Negative Bedside Urine Nitrite - Negative Bedside Urine Leukocytes - Negative Esterase MDM Narrative Medical decision making narrative: CC: 67-year-old female with increasing shortness of breath Complicating co-morbidities: Age Data collected from: Patient Medical records reviewed: Prior notes reviewed in our EMR Differential considered, but not limited to: COVID versus influenza versus pneumonia versus new onset CHF versus pulmonary embolism versus other Exam documented above, pertinent findings include: Patient is breathless and hypoxemic with increased work of breathing, heart rate is regular, lung sounds unremarkable, abdomen soft Lab Test results independently reviewed as above. 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 Today she is found to be conversationally dyspneic and hypoxemic, requiring nasal cannula at 4 L. in many ways labs are reassuring, however there is a slight troponin leak at 0.1 and critically elevated D-dimer which prompted investigation with CT angiogram which confirmed suspicion of pulmonary embolism. Given evidence of right heart strain it was clear that patient would need a larger facility with more access to specialty care. [facility] and hospitalist agree with the need for transfer and treatment plan thus far. Patient and family understand and agree with the diagnosis and plan Critical Care Time Critical Care Time Critical Care Time: Yes Total Critical Care Time: 45 Attestation: The high probability of a clinically significant, sudden or life threatening deterioration of the [CV] system(s) required my full and direct attention, intervention and personal management. The aggregate critical care time was [45] minutes. This time is in addition to time spent performing reported procedures but includes the following: [x] Data Review and interpretation [x] Patient assessment and monitoring of vital signs [x] Documentation [x] Medication orders and management Discharge Plan Departure Patient Disposition: [facility] Clinical Impression: Acute hypoxemic respiratory failure, Pulmonary embolism, Lung mass, Pleural effusion Referrals: Anabell Vasquez PA-C [Primary Care Provider] -
--- NOTE | 2022-12-23 07:41 | DI.RAD.S_ITS ---
PROCEDURE: XR CHEST 2V INDICATIONS: SOB TECHNIQUE: 2 views of the chest were acquired. COMPARISON: None. FINDINGS: Surgical changes and devices: None. Lungs and pleura: Small right pleural effusion. Opacity at the right apex. No pneumothorax. No significant left pleural effusion. Mediastinum: Mediastinal contours are normal. Heart size is normal. Bones and chest wall: No suspicious bony abnormalities. Soft tissues appear unremarkable. IMPRESSION: Right apex opacity. This could be due to pneumonia or accessory azygos fissure summation, or mass. This could be further evaluated with CT of the chest with IV contrast. Recommend follow-up to resolution. Small right pleural effusion. Dictated by: Americo Luther M.D. on 12/23/2022 at 8:18 Approved by: Americo Luther M.D. on 12/23/2022 at 8:22
[2022-12-23 08:09] LABS: Add Manual Diff / Slide Review NO; Basophils Absolute Auto 0 /uL (0-100); Basophils Percent Auto 0.3 % (0-2); Eosinophils Absolute Auto 200 /uL (0-450); Eosinophils Percent Auto 1.7 % (2-4); Hematocrit 38.4 % (36-46); Hemoglobin 13.1 g/dL (12.0-16.0); Lymphocytes Absolute Auto 1200 /uL (1100-4500); Lymphocytes Percent Auto 10.7 % (25-40); Mean Corpuscular Volume 85.4 fL (80-100); Monocytes Absolute Auto 600 /uL (0-900); Monocytes Percent Auto 5.8 % (3-14); Neutrophils Absolute Auto 9100 /uL (1500-7000); Neutrophils Percent Auto 81.5 % (50-75); Platelet Count 279 X10^3/uL (150-400); White Blood Cell Count 11.2 X10^3/uL (4.5-11.0)
[2022-12-23 08:11] LABS: HEMOLYSIS < 15 (0-50)
[2022-12-23 08:18] LABS: Alanine Aminotransferase 25 IU/L (<35); Albumin 3.8 g/dL (3.5-5.0); Albumin Globulin Ratio 1.2 (1.0-2.8); Alkaline Phosphatase 89 U/L (38-126); Aspartate Aminotransferase 29 IU/L (14-36); BUN Creatinine Ratio 13.8 (6-22); Bilirubin Total 0.7 mg/dL (0.2-1.3); Blood Urea Nitrogen 8 mg/dL (7-17); Calcium 9.2 mg/dL (8.4-10.2); Carbon Dioxide 26 mmol/L (22-32); Chloride 102 mmol/L (98-107); Creatine Kinase 30 U/L (30-135); Estimated Glomerular Filt Rate > 60 mL/min (>60); Globulin 3.1 g/dL (1.7-4.1); Glucose 125 mg/dL (80-110); Magnesium 2.2 mg/dL (1.6-2.3); Potassium 3.9 mmol/L (3.4-5.1); Sodium 135 mmol/L (137-145); Total Protein 6.9 g/dL (6.3-8.2)
[2022-12-23 08:27] LABS: NT-proBNP (BNP-Adult 18+) 87 pg/mL (<125)
[2022-12-23 08:29] LABS: Troponin I 0.106 ng/mL (0.01-0.034)
[2022-12-23 08:30] LABS: D Dimer 41624 ng/ml (<500)
[2022-12-23 08:33] LABS: Procalcitonin 0.05 ng/mL (<0.5)
--- NOTE | 2022-12-23 08:43 | DI.CT.S_ITS ---
PROCEDURE: CT ANGIO CHEST PE PROTOCOL INDICATIONS: SOB, hypoxemia, Dimer 41,000 TECHNIQUE: After the administration of intravenous contrast, 2 mm thick sections acquired from the pulmonary apices to the posterior costophrenic angles. 3-dimensional maximum intensity projection (MIP) coronal and sagittal reformats were then acquired through the thorax. For radiation dose reduction, the following was used: automated exposure control, adjustment of mA and/or kV according to patient size. COMPARISON: None. FINDINGS: Image quality: Excellent. Pulmonary arteries: There is extensive bilateral pulmonary emboli. The appearance of pulmonary embolus in the right lower lobe, which appears to be adherent to the wall with some central recanalization, suggests that it has been present for at least some period of time period there is expansile left lower lobe pulmonary arterial clot which appears acute. A clot on the left extends from the left main pulmonary artery. Lungs and pleura: Large spiculated right apical lung mass consistent with a primary bronchogenic carcinoma measuring approximately 6.2 x 3.5 cm. There is a large right pleural effusion with right basilar atelectasis. Central and peripheral airways are patent. Mediastinum: Overall heart size is normal. However, there is reversal of the normal RV LV ratio suggesting that there is likely a degree of right heart is strain. No mediastinal or hilar adenopathy. Shotty right hilar and mediastinal lymph nodes. Thoracic aorta is normal in caliber and enhancement. Esophagus is normal in caliber, without hiatal hernia. Bones and chest wall: No suspicious bony lesions. Ribs and thoracic spine appear intact throughout. Thyroid gland is unremarkable. No axillary or supraclavicular adenopathy. Abdomen: Question uncinate process pancreatic mass. This is not definite. IMPRESSION: 1. Large right apical lung mass consistent with primary bronchogenic carcinoma. 2. Extensive bilateral pulmonary emboli, some of which appears to likely have been present for some period of time. 3. Question uncinate process pancreas mass. 4. Large right pleural effusion. Underlying right basilar atelectasis. Dictated by: Denis Pickering M.D. on 12/23/2022 at 9:17 Approved by: Denis Pickering M.D. on 12/23/2022 at 9:26
[2022-12-23 08:55] LABS: Fractionated Inspired Oxygen 36; HCO3 ABG 24 mmol/L (23-27); Oxygen Saturation ABG 94 % (95-100); PCO2 ABG 33.1 mmHg (35-45); PO2 ABG 66 mmHg (80-100); TCO2 ABG 24 mmol/L (23-27)
[2022-12-23 08:56] LABS: pH ABG 7.46 (7.35-7.45)
[2022-12-23 08:58] LABS: Adenovirus Not Detected (Not Detect); B. parapertussis Not Detected (Not Detecte); Bordetella pertussis Not Detected (Not Detecte); Chlamydophila pneumoniae Not Detected (Not Detect); Coronavirus 229E Not Detected (Not Detect); Coronavirus HKU1 Not Detected (Not Detect); Coronavirus NL 63 Not Detected (Not Detect); Coronavirus OC43 Not Detected (Not Detect); Human Metapneumovirus Not Detected (Not Detect); Human Rhinovirus/Enterovirus Not Detected (Not Detect); Influenza A Not Detected (Not Detect); Influenza B Not Detected (Not Detect); Mycoplasma pneumoniae Not Detected (Not Detect); Parainfluenza Virus 1 Not Detected (Not Detect); Parainfluenza Virus 2 Not Detected (Not Detect); Parainfluenza Virus 3 Not Detected (Not Detect); Parainfluenza Virus 4 Not Detected (Not Detect); Respiratory Syncytial Virus Not Detected (Not Detect); SARS- CoV-2 Not Detected (Not Detecte)
[2022-12-23] MEDS: HEPARIN DRIP 25,000 UNIT/500 ML IV.SOLN 24 UNIT IV (09:47)
[2022-12-23] MEDS: HEPARIN 5,000 UNIT/ML VIAL 7400 UNIT IV (09:49)
[2022-12-23 09:59] LABS: PTT Partial Thromboplastin Tim 31 SECONDS (26-36)
--- NOTE | 2022-12-23 11:10 | PC.NURSE ---
FACILITIES MAINTENANCE SUPERVISOR Note: Attempting to find placement for pt transfer. Spoke with Jaylin from and Missy from [facility]/[place] and placed pt on their lists.
--- NOTE | 2022-12-23 11:36 | PC.NURSE ---
Patient has gotten up to BSC and oxygen saturation drops to 90% on 4L NC with up at bedside. Patients o2 returned to 95% at rest on 4LNC
[2022-12-23] MEDS: ENOXAPARIN 100 MG/ML SYRINGE 95 MG SUBCUT (13:08)
--- NOTE | 2022-12-23 14:52 | PC.NURSE ---
Addendum entered by Diane Medrano CNA 12/23/22 14:53: Accepted by Dr. Kaminski in ED. Original Note: JAYANT Note: Pt accepted at [facility]. [facility] ETA around 1600.
== END 2022-12-23 16:41 | disposition short-term general hospital (02) ==
PROVIDERS: Emergency Provider Emergency Medicine; PCP Student in an Organized Health Care Education/Training Program
DX: J96.01 Acute respiratory failure with hypoxia (principal); I26.99 Other pulmonary embolism without acute cor pulmonale; R91.8 Other nonspecific abnormal finding of lung field; J90 Pleural effusion, not elsewhere classified; Z20.822 Contact with and (suspected) exposure to COVID-19
CPT/HCPCS: 36415; 36600; 71046; 71275; 80053; 81003; 82550; 82805; 83735; 83880; 84145; 84484; 85025; 85379; 85730; 86140; 87633; 93005; 93010; 96365; 96366; 96372; 96375; 99285; J1644; J1650

== ENCOUNTER 2022-12-31 17:53 | Inpatient (IN) | payer OTHER, SELFPAY ==
[2022-12-31] VITALS (15 sets, daily range): BP systolic 99–131; BP diastolic 57–69; PULSE 66–89; RESP 18–26; TEMP 37.1; O2SAT 92–97; BMI 29.4
--- NOTE | 2022-12-31 18:13 | DI.RAD.S_ITS ---
PROCEDURE: XR CHEST 1V INDICATIONS: Shortness of breath TECHNIQUE: One view of the chest was acquired. COMPARISON: [facility], CT, CT ANGIO CHEST PE PROTOCOL, 12/23/2022, 8:53. [facility], CR, XR CHEST 2V, 12/23/2022, 7:47. FINDINGS: Surgical changes and devices: None. Lungs and pleura: Moderate right pleural effusion, increased since prior chest radiograph. Masslike opacity redemonstrated projecting over the medial right lung apex. Mediastinum: Mediastinal and hilar contours appear similar to before. Bones and chest wall: No suspicious bony lesions. Overlying soft tissues appear unremarkable. IMPRESSION: 1. Moderate right pleural effusion, increased. 2. Redemonstrated mass opacity medial right upper lung. Dictated by: Luiz Ye M.D. on 12/31/2022 at 19:38 Approved by: Luiz Ye M.D. on 12/31/2022 at 19:40
[2022-12-31 18:44] LABS: Add Manual Diff / Slide Review NO; Basophils Absolute Auto 0 /uL (0-100); Basophils Percent Auto 0.4 % (0-2); Eosinophils Absolute Auto 300 /uL (0-450); Eosinophils Percent Auto 3.3 % (2-4); Hematocrit 37.6 % (36-46); Hemoglobin 12.8 g/dL (12.0-16.0); Lymphocytes Absolute Auto 2500 /uL (1100-4500); Lymphocytes Percent Auto 25.4 % (25-40); Mean Corpuscular HGB Conc 33.9 % (30-36); Mean Corpuscular Hemoglobin 28.8 PG (26-34); Mean Corpuscular Volume 85.1 fL (80-100); Monocytes Absolute Auto 600 /uL (0-900); Monocytes Percent Auto 6.4 % (3-14); Neutrophils Absolute Auto 6400 /uL (1500-7000); Neutrophils Percent Auto 64.5 % (50-75); Platelet Count 384 X10^3/uL (150-400); Red Blood Cell Count 4.42 X10^6/uL (4.0-5.2); Red Cell Distribution Width 13.4 % (11.6-14.8); White Blood Cell Count 9.9 X10^3/uL (4.5-11.0)
[2022-12-31 18:46] LABS: INR 1.5 (0.9-1.3); Prothrombin Time 17.3 SECONDS (10.1-12.7)
[2022-12-31 18:49] LABS: Alanine Aminotransferase 21 IU/L (<35); Albumin 3.6 g/dL (3.5-5.0); Albumin Globulin Ratio 1.2 (1.0-2.8); Alkaline Phosphatase 75 U/L (38-126); Aspartate Aminotransferase 24 IU/L (14-36); BUN Creatinine Ratio 15.4 (6-22); Bilirubin Total 0.5 mg/dL (0.2-1.3); Blood Urea Nitrogen 10 mg/dL (7-17); Calcium 9.1 mg/dL (8.4-10.2); Carbon Dioxide 24 mmol/L (22-32); Chloride 106 mmol/L (98-107); Estimated Glomerular Filt Rate > 60 mL/min (>60); Globulin 3.1 g/dL (1.7-4.1); Glucose 134 mg/dL (80-110); HEMOLYSIS < 15 (0-50); Lactate (Lactic Acid) 0.9 mmol/L (0.7-2.1); Sodium 135 mmol/L (137-145); Total Protein 6.7 g/dL (6.3-8.2)
[2022-12-31 19:00] LABS: NT-proBNP (BNP-Adult 18+) 71 pg/mL (<125); Troponin I < 0.012 ng/mL (0.01-0.034)
--- NOTE | 2022-12-31 20:03 | DI.CT.S_ITS ---
PROCEDURE: CT ANGIO CHEST PE PROTOCOL INDICATIONS: chest pain TECHNIQUE: After the administration of intravenous contrast, 2 mm thick sections acquired from the pulmonary apices to the posterior costophrenic angles. 3-dimensional maximum intensity projection (MIP) coronal and sagittal reformats were then acquired through the thorax. For radiation dose reduction, the following was used: automated exposure control, adjustment of mA and/or kV according to patient size. COMPARISON: [facility], CR, XR CHEST 1V, 12/31/2022, 18:29. [facility], CT, CT ANGIO CHEST PE PROTOCOL, 12/23/2022, 8:53. FINDINGS: Image quality: Excellent. Pulmonary arteries: Multiple nonocclusive left pulmonary emboli are visualized within the left lower lobe. When compared with the study dated December 23, 2022, these have decreased in extent and number. The previous nonocclusive pulmonary emboli within the right lower lobe have now resolved. No findings to suggest new pulmonary embolus. Lungs and pleura: There is a new right apical pneumothorax when compared with the prior CT dated December 23, 2022. As before, there is a moderate-sized low-density right pleural effusion. Compressive atelectasis is present at the right lung base which is slightly increased in extent when compared with the prior study. The large spiculated mass within the right upper lobe is redemonstrated and appears similar in size to the prior study. As before, there is surrounding interlobular septal thickening suggesting lymphangitic carcinomatosis. No new acute airspace opacities. No left pleural effusion. Mediastinum: Heart size is normal, without pericardial effusion there are multiple shotty mediastinal and hilar nodes, some of which meet the pathologic size criteria of greater than 1 cm in diameter. Thoracic aorta is normal in caliber and enhancement. Esophagus is normal in caliber, without hiatal hernia. Bones and chest wall: No suspicious bony lesions. Ribs and thoracic spine appear intact throughout. Thyroid gland is unremarkable. No axillary or supraclavicular adenopathy. Abdomen: Visualized upper abdominal solid organs appear normal in the early arterial phase of enhancement. IMPRESSION: 1. Right apical pneumothorax which is new when compared with the CT dated December 23, 2022 and may be the etiology of the patient's chest pain. 2. Decreased burden of pulmonary embolus within the left pulmonary arteries and resolution of the right pulmonary emboli. No findings to suggest new pulmonary embolus or propagation of the existing thrombus. 3. 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 Dictated by: Lovely Jain M.D. on 12/31/2022 at 21:45 Approved by: Lovely Jain M.D. on 12/31/2022 at 21:51
[2022-12-31] MEDS: SODIUM CHLORIDE 0.9% 500 ML 1000 ML IV (20:22)
--- NOTE | 2022-12-31 20:25 | ED_ITS ---
HPI - General Adult General Chief complaint: Shortness of Breath/Dyspnea Stated complaint: painful breathing, stage 4 lung ca, back pain Time Seen by Provider: 12/31/22 19:52 Source: patient and family Mode of arrival: Wheelchair History of Present Illness HPI narrative: Patient brought here by daughter for complaints painful left posterior lung/mid back pain with deep breath. This occurred when she woke up from her nap around 3:00 a.m. or 4:00 a.m. this afternoon. She took 1 of her oxycodone and pain is much better now. Patient has been recently diagnosed December 23, 2022 and sent to [facility] on the same day from this emergency department for newly found lung cancer with bilateral pulmonary embolisms. Patient has not started lung cancer treatment due to pending cytology reports and results and communication between providers. Patient states she is been doing well after discharge home this past Wednesday. Has been walking slowly but not a lot of short of breath complaints. Or chest pain. Patient is on Eliquis for pulmonary embolisms. CT chest results below from December 23, 2022 Pulmonary arteries:? There is extensive bilateral pulmonary emboli.? The appearance of pulmonary embolus in the right lower lobe, which appears to be adherent to the wall with some central recanalization, suggests that it has been present for at least some period of time period there is expansile left lower lobe pulmonary arterial clot which appears acute.? A clot on the left extends from the left main pulmonary artery. ? Lungs and pleura:? Large spiculated right apical lung mass consistent with a primary bronchogenic carcinoma measuring approximately 6.2 x 3.5 cm.? There is a large right pleural effusion with right basilar atelectasis.? Central and peripheral airways are patent.? ? Mediastinum:? Overall heart size is normal.? However, there is reversal of the normal RV LV ratio suggesting that there is likely a degree of right heart is strain.? No mediastinal or hilar adenopathy.? Shotty right hilar and mediastinal lymph nodes.? Thoracic aorta is normal in caliber and enhancement.? Esophagus is normal in caliber, without hiatal hernia.? ? Bones and chest wall:? No suspicious bony lesions.? Ribs and thoracic spine appear intact throughout.? Thyroid gland is unremarkable.? No axillary or supraclavicular ronald opathy.? Related Data Allergies Allergy/AdvReac Type Severity Reaction Status Date / Time No Known Drug Allergies Allergy Verified 12/23/22 11:26 Review of Systems Review of Systems Narrative: GENERAL: negative chills, fatigue, malaise, fever, sweats. HEENT: negative sinus pain, ear pain, sore throat RESPIRATORY: negative dyspnea, cough CARDIOVASCULAR: negative chest pain, palpitations GASTROINTESTINAL: negative nausea, vomiting, abdominal pain : negative dysuria, frequency, hematuria MUSCULOSKELETAL: negative muscle or bony pain, positive back pain SKIN: negative rash, skin lesions NEUROLOGIC: negative weakness, numbness ROS Unobtainable: All systems reviewed & are unremarkable except as noted in HPI and below Patient History Social History household members: none Smoking Status: Never smoker Smoking Status: Never smoker alcohol intake frequency: holidays/special occasions only Substance Use Type: does not use Exam Narrative Exam Narrative: GENERAL: in no distress, not toxic not dyspneic HEAD: Normocephalic. EYES: Pupils equal round ENT: Mucous membranes moist. NECK: Trachea midline. CARDIOVASCULAR: Regular rate and rhythm without murmurs RESPIRATORY: Clear to auscultation. Breath sounds equal bilaterally. No wheezes, rales, or rhonchi. GASTROINTESTINAL: Abdomen soft, non-tender EXTREMITIES: No gross deformities. BACK: No flank tenderness. No CVA tenderness. No reproducible left posterior rib tenderness. But there is pain with deep breath in his area of lower posterior rib area. NEURO: AOx4. SKIN: Warm and dry PSYCH: Not anxious, is cooperative Initial Vital Signs Initial Vital Signs: Vital Signs Temperature 98.8 F 12/31/22 18:00 Pulse Rate 89 12/31/22 18:00 Respiratory Rate 18 12/31/22 18:00 Blood Pressure 115/65 12/31/22 18:00 Pulse Oximetry 97 12/31/22 18:00 Oxygen Delivery Method Room Air 12/31/22 18:00 Course Orders Ordered: ED Orders 12/31/22 20:03 CT angio chest PE protocol Stat Acetaminophen (Acetaminophen 325 Mg Tablet) 650 mg PO Q6H PRN PRN Reason: Fever/Mild Pain (1-3) Hydrocodone Bitart/Acetaminophen (Hydrocodone/Acet 5/325 Tablet) 2 tab PO Q4H PRN PRN Reason: Pain, Severe (5-10 Al Hydrox/Mg Hydrox/Simethicone (Mag Hydrox/Alum/Simeth 30 Ml Udc) 30 ml PO Q6HR PRN PRN Reason: Dyspepsia Calcium Carbonate (Calcium Carbonate 500 Mg Tab) 1,000 mg PO Q4HR PRN PRN Reason: Dyspepsia Naloxone HCl (Naloxone 0.4 Mg/Ml Vial) 0.2 mg IV Q2MIN PRN PRN Reason: Opiate Reversal Ondansetron HCl (Ondansetron 4 Mg/2 Ml Inj) 4 mg IV Q8HR PRN PRN Reason: Nausea And Vomiting Sennosides (Sennosides 8.6 Mg Tablet) 17.2 mg PO BEDTIME MANNY Discontinued Medications Sodium Chloride (Normal Saline 0.9%) 500 mls @ 1,000 mls/hr IV BOLUS ONE Stop: 12/31/22 20:32 Last Infusion: 12/31/22 22:10 Dose: 0 mls/hr Documented By: Infusion: 12/31/22 20:40 Dose: 1,000 mls/hr Documented By: Infusion: 12/31/22 20:22 Dose: 0 mls/hr Documented By: Admin: 12/31/22 20:22 Dose: 1,000 mls/hr Documented By: CARLOS Oxycodone/Acetaminophen (Oxycodone/Acetaminophen 5/325 Tablet) 1 tab PO NOW ONE Stop: 12/31/22 22:53 Last Admin: 12/31/22 23:03 Dose: 1 tab Documented By: CARLOS Vital Signs Vital signs: Vital Signs - 8 hr 12/31/22 20:00 12/31/22 20:00 12/31/22 20:35 Pulse Rate 74 81 Respiratory Rate 21 Blood Pressure 104/63 Pulse Oximetry 95 92 Oxygen Delivery Method Oxygen Flow Rate 12/31/22 20:39 12/31/22 20:39 12/31/22 21:00 Pulse Rate 73 Respiratory Rate 19 Blood Pressure 109/65 101/57 L Pulse Oximetry 95 Oxygen Delivery Method Room Air Oxygen Flow Rate 12/31/22 21:00 12/31/22 21:30 12/31/22 21:30 Pulse Rate 68 67 Respiratory Rate 21 21 Blood Pressure 103/61 Pulse Oximetry 93 93 Oxygen Delivery Method Room Air Room Air Oxygen Flow Rate 12/31/22 22:00 12/31/22 22:00 12/31/22 22:30 Pulse Rate 66 Respiratory Rate 18 Blood Pressure 99/59 L 112/61 Pulse Oximetry 93 Oxygen Delivery Method Room Air Oxygen Flow Rate 12/31/22 22:30 12/31/22 23:00 12/31/22 23:00 Pulse Rate 73 69 Respiratory Rate 22 21 Blood Pressure 109/67 Pulse Oximetry 95 97 Oxygen Delivery Method Nasal Cannula Nasal Cannula Oxygen Flow Rate 2 2 12/31/22 23:30 12/31/22 23:30 Pulse Rate 73 Respiratory Rate 26 H Blood Pressure 103/66 Pulse Oximetry 96 Oxygen Delivery Method Nasal Cannula Oxygen Flow Rate 2 Medical Decision Making Lab Data 12/31/22 18:20 12/31/22 18:20 Labs: Lab Results 12/31/22 12/31/22 12/31/22 Range/Units 18:20 18:20 18:20 WBC 9.9 (4.5-11.0) X10^3/uL RBC 4.42 (4.0-5.2) X10^6/uL Hgb 12.8 (12.0-16.0) g/dL Hct 37.6 (36-46) % MCV 85.1 (80-100) fL MCH 28.8 (26-34) PG MCHC 33.9 (30-36) % RDW 13.4 (11.6-14.8) % Plt Count 384 (150-400) X10^3/uL Neut % (Auto) 64.5 (50-75) % Lymph % (Auto) 25.4 (25-40) % [place] % (Auto) 6.4 (3-14) % Eos % (Auto) 3.3 (2-4) % Baso % (Auto) 0.4 (0-2) % Neut # (Auto) 6400 (9527-2426) /uL Lymph # (Auto) 2500 (5121-3102) /uL [place] # (Auto) 600 (0-900) /uL Eos # (Auto) 300 (0-450) /uL Baso # (Auto) 0 (0-100) /uL PT 17.3 H (10.1-12.7) SECONDS INR 1.5 H (0.9-1.3) Sodium 135 L (137-145) mmol/L Potassium 4.0 (3.4-5.1) mmol/L Chloride 106 (98-107) mmol/L Carbon Dioxide 24 (22-32) mmol/L BUN 10 (7-17) mg/dL Creatinine 0.65 (0.52-1.04) mg/dL Estimated GFR > 60 (>60) mL/min BUN/Creatinine Ratio 15.4 (6-22) Glucose 134 H (80-110) mg/dL Lactate (0.7-2.1) mmol/L Calcium 9.1 (8.4-10.2) mg/dL Magnesium (1.6-2.3) mg/dL Total Bilirubin 0.5 (0.2-1.3) mg/dL AST 24 (14-36) IU/L ALT 21 (<35) IU/L Alkaline Phosphatase 75 (38-126) U/L Troponin I < 0.012 (0.01-0.034) ng/mL NT-Pro-B Natriuret Pep 71 (<125) pg/mL Total Protein 6.7 (6.3-8.2) g/dL Albumin 3.6 (3.5-5.0) g/dL Globulin 3.1 (1.7-4.1) g/dL Albumin/Globulin Ratio 1.2 (1.0-2.8) 12/31/22 12/31/22 Range/Units 18:20 18:20 WBC (4.5-11.0) X10^3/uL RBC (4.0-5.2) X10^6/uL Hgb (12.0-16.0) g/dL Hct (36-46) % MCV (80-100) fL MCH (26-34) PG MCHC (30-36) % RDW (11.6-14.8) % Plt Count (150-400) X10^3/uL Neut % (Auto) (50-75) % Lymph % (Auto) (25-40) % [place] % (Auto) (3-14) % Eos % (Auto) (2-4) % Baso % (Auto) (0-2) % Neut # (Auto) (7767-6804) /uL Lymph # (Auto) (5328-6349) /uL [place] # (Auto) (0-900) /uL Eos # (Auto) (0-450) /uL Baso # (Auto) (0-100) /uL PT (10.1-12.7) SECONDS INR (0.9-1.3) Sodium (137-145) mmol/L Potassium (3.4-5.1) mmol/L Chloride (98-107) mmol/L Carbon Dioxide (22-32) mmol/L BUN (7-17) mg/dL Creatinine (0.52-1.04) mg/dL Estimated GFR (>60) mL/min BUN/Creatinine Ratio (6-22) Glucose (80-110) mg/dL Lactate 0.9 (0.7-2.1) mmol/L Calcium (8.4-10.2) mg/dL Magnesium 2.4 H (1.6-2.3) mg/dL Total Bilirubin (0.2-1.3) mg/dL AST (14-36) IU/L ALT (<35) IU/L Alkaline Phosphatase (38-126) U/L Troponin I (0.01-0.034) ng/mL NT-Pro-B Natriuret Pep (<125) pg/mL Total Protein (6.3-8.2) g/dL Albumin (3.5-5.0) g/dL Globulin (1.7-4.1) g/dL Albumin/Globulin Ratio (1.0-2.8) Imaging Data Chest x-ray: Radiologist's Impression: [address] [address] XRay Report Signed Patient: Brea Dior MR#: [id number] : 1955 Acct:[id number] Age/Sex: 67 / F Date of Service: 12/31/22 Loc: ED Accession Number: [id number] ?? Procedure: XR chest 1V Ordering Provider: Gallo Thomas MD PROCEDURE:? XR CHEST 1V ? INDICATIONS:? Shortness of breath ? TECHNIQUE:? One view of the chest was acquired.? ? COMPARISON:? [facility], CT, CT ANGIO CHEST PE PROTOCOL, 12/23/2022, 8:53.? [facility], CR, XR CHEST 2V, 12/23/2022, 7:47. ? FINDINGS:? ? Surgical changes and devices:? None.? ? Lungs and pleura:? Moderate right pleural effusion, increased since prior chest radiograph.? Masslike opacity redemonstrated projecting over the medial right lung apex. ? Mediastinum:? Mediastinal and hilar contours appear similar to before. ? Bones and chest wall:? No suspicious bony lesions.? Overlying soft tissues appear unremarkable.? ? IMPRESSION:? 1. Moderate right pleural effusion, increased. 2. Redemonstrated mass opacity medial right upper lung.? ? ? Dictated by: Luiz Ye M.D. on 12/31/2022 at 19:38 ? ? Approved by: Luiz Ye M.D. on 12/31/2022 at 19:40 ? CT scan - chest: Radiologist's Impression: [address] [address] [address] Scan Report Signed Patient: Brea Dior MR#: [id number] : 1955 Acct:[id number] Age/Sex: 67 / F Date of Service: 12/31/22 Loc: ED Accession Number: [id number] ?? Procedure: CT angio chest PE protocol Ordering Provider: Gallo Thomas MD PROCEDURE:? CT ANGIO CHEST PE PROTOCOL ? INDICATIONS:? chest pain ? TECHNIQUE:? After the administration of intravenous contrast, 2 mm thick sections acquired from the pulmonary apices to the posterior costophrenic angles.? 3-dimensional maximum i ntensity projection (MIP) coronal and sagittal reformats were then acquired through the thorax.? For radiation dose reduction, the following was used:? automated exposure control, adjustment of mA and/or kV according to patient size.? ? COMPARISON:? [facility], CR, XR CHEST 1V, 12/31/2022, 18:29.? [facility], CT, CT ANGIO CHEST PE PROTOCOL, 12/23/2022, 8:53. ? FINDINGS:? Image quality:? Excellent.? ? Pulmonary arteries:? Multiple nonocclusive left pulmonary emboli are visualized within the left lower lobe.? When compared with the study dated December 23, 2022, these have decreased in extent and number.? The previous nonocclusive pulmonary emboli within the right lower lobe have now resolved.? No findings to suggest new pulmonary embolus. ? Lungs and pleura:? There is a new right apical pneumothorax when compared with the prior CT dated December 23, 2022. As before, there is a moderate-sized low-density right pleural effusion.? Compressive atelectasis is present at the right lung base which is slightly increased in extent when compared with the prior study.? The large spiculated mass within the right upper lobe is redemonstrated and appears similar in size to the prior study.? As before, there is surrounding interlobular septal thickening suggesting lymphangitic carcinomatosis.? No new acute airspace opacities.? No left pleural effusion. ? Mediastinum:? Heart size is normal, without pericardial effusion there are multiple shotty mediastinal and hilar nodes, some of which meet the pathologic size criteria of greater than 1 cm in diameter.? Thoracic aorta is normal in caliber and enhancement.? Esophagus is normal in caliber, without hiatal hernia.? ? Bones and chest wall:? No suspicious bony lesions.? Ribs and thoracic spine appear intact throughout.? Thyroid gland is unremarkable.? No axillary or supraclavicular adenopathy.? ? Abdomen:? Visualized upper abdominal solid organs appear normal in the early arterial phase of enhancement.? ? IMPRESSION:? ? 1. Right apical pneumothorax which is new when compared with the CT dated December 23, 2022 and may be the etiology of the patient's chest pain. ? 2. Decreased burden of pulmonary embolus within the left pulmonary arteries and resolution of the right pulmonary emboli.? No findings to suggest new pulmonary embolus or propagation of the existing thrombus. ? 3. 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 ? ? Dictated by: Lovely Jain M.D. on 12/31/2022 at 21:45 ? ? Approved by: Lovely Jain M.D. on 12/31/2022 at 21:51 ? MDM Narrative Medical decision making narrative: Patient brought here by daughter for complaints painful left posterior lung/mid back pain with deep breath. This occurred when she woke up from her nap around 3:00 a.m. or 4:00 a.m. this afternoon. She took 1 of her oxycodone and pain is much better now. Patient has been recently diagnosed December 23, 2022 and sent [facility] on the same day from this emergency department for newly found lung cancer with bilateral pulmonary embolisms. Patient has not started lung cancer treatment due to pending cytology reports and results and communication between providers. Patient states she is been doing well after discharge home this past Wednesday. Has been walking slowly but not a lot of short of breath complaints. Or chest pain. Patient is on Eliquis for pulmonary embolisms. After history and exam CBC CMP troponin EKG CT chest chest x-ray [facility] CC: Back pain Complicating co-morbidities: Lung cancer pulmonary embolism Data collected from: Patient and daughter Medical records reviewed: December 23, 2022 ER visit here Differential considered: Includes but not limited to new lung mass/new blood clot/pneumothorax hemothorax Exam documented above, pertinent findings include: Reproducible left back pain with deep breath Lab Test results independently reviewed as above. Pertinent findings: WBC 9.9 hemoglobin 12.8 INR 1.5 sodium 135 potassium 4.0 troponin less than 0.012 Independently reviewed EKG normal sinus rhythm rate [address] elevation or depression Imaging studies independently reviewed: Chest x-ray no acute finding to explain left side pain CT chest, improve pulmonary emboli however new small right apical pneumothorax Consultations: I did speak with radiologist regarding pneumothorax. It is less than 5% on the right side. 10:20 p.m.. Spoke with general surgeon Dr. Rodas, recommends no chest tube at this time. Observe and treat conservatively, placed on nasal cannula and repeat chest x-ray in the morning. Admit to hospitalist. 11:48 p.m.. Spoke with hospitalist nurse practitioner, Keely, she will see patient for admission. Repeat x-ray of the chest in the morning. Treatments: Normal saline oxycodone Re-evaluations: Reviewed results with patient and daughter. They do understand need for admission. At this time no acute finding for source of left lower posterior lung pain. However overall blood clots have improved. They do understand need to observe for pneumothorax Discussion: Appropriate for admission for observation repeat chest x-ray in the morning. Patient placed on oxygen for treatment. Diagnosis: Acute pneumothorax Discharge Plan Departure Patient Disposition: Admitted as Observation Clinical Impression: Pneumothorax on right Admit Date/Time: 12/31/22 23:48 Admit Provider: Keely Dozier
[2022-12-31] MEDS: OXYCODONE/ACETAMINOPHEN 5/325 TABLET 1 TAB PO (23:03)
--- NOTE | 2023-01-01 | P.HP_ITS ---
History of Present Illness History of Present Illness Date Patient Seen: 01/01/23 Time Patient Seen: 00:00 Chief complaint: painful breathing, stage 4 lung ca, back pain Narrative: Brea Dior is a 67 yr old female with a history of recent diagnosis of stage IV bronchogenic carcinoma of the lung, and bilateral PEs 12/23/2022 (ED visit 12/23/2022 acute respiratory failure, bilateral PEs, lung CA, was transferred to ). Presented to the ED with complaints painful left posterior lung/mid back pain with deep breath.? Started this afternoon, pain medication in ED improved. Patient is due to start lung cancer treatment pending cytology reports and collaboration between Dr. Richards pulmonology @ and oncology.? Patient was started on Eliquis for pulmonary embolisms. Patient is not in acute respiratory failure. On admit pain medication has improved pain. patient denies headache, changes in vision, difficulty swallowing, speech impairment, weakness, numbness, tingling, difficulty with ambulation, recent falls, head injury, LOC, fever, body aches, chills, cough, recent exposure to illness, abdominal pain, nausea, vomiting, urinary incontinence/retention, dysuria, frequency, urgency, hematuria, bowel changes, constipation, incontinence, melena, rashes, recent injury, or trauma. Patient's vital signs are stable temp 98.8?, 112/61, 73, 22 95% on room air. Patient's labs are reassuringly unremarkable with the exception of INR 1.5. Lactate, troponin, BNP are all normal. I personally reviewed all imaging and EKG. EKG NSR at a rate of 80, incomplete right BBB, with nonspecific ST abnormalities unchanged from EKG on 12/23/2022. CTA:Right apical pneumothorax which is new when compared with the CT dated December 23, 2022, decreased burden of pulmonary embolus within the left pulmonary arteries and resolution of the right pulmonary emboli.? 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 Patient admitted for acute right pneumothorax. [facility] Family History Mother Alzheimer's dementia Father Cancer Social History (Updated 01/01/23 @ 03:55 by ERIC EnriquezBC) household members: none Smoking Status: Never smoker alcohol intake: current substance use type: does not use Meds Home Medications and Allergies Allergies Allergy/AdvReac Type Severity Reaction Status Date / Time No Known Drug Allergies Allergy Verified 12/23/22 11:26 Review of Systems Review of Systems Narrative: All 12 point systems reviewed with the patient and are negative except otherwise documented. Exam Vital Signs (past 8 hours): - 12/31/22 18:00 12/31/22 18:18 12/31/22 18:20 Temperature 98.8 F Pulse Rate 89 84 84 Respiratory Rate 18 23 20 Blood Pressure 115/65 Pulse Oximetry 97 94 93 Oxygen Delivery Method Room Air Oxygen Flow Rate 12/31/22 18:20 12/31/22 18:30 12/31/22 18:30 Temperature Pulse Rate 84 Respiratory Rate Blood Pressure 131/67 114/59 L Pulse Oximetry 93 Oxygen Delivery Method Oxygen Flow Rate 12/31/22 19:00 12/31/22 19:00 12/31/22 19:30 Temperature Pulse Rate 78 Respiratory Rate Blood Pressure 107/69 105/69 Pulse Oximetry 94 Oxygen Delivery Method Oxygen Flow Rate 12/31/22 19:30 12/31/22 20:00 12/31/22 20:00 Temperature Pulse Rate 75 74 Respiratory Rate 21 Blood Pressure 104/63 Pulse Oximetry 96 95 Oxygen Delivery Method Room Air Oxygen Flow Rate 12/31/22 20:35 12/31/22 20:39 12/31/22 20:39 Temperature Pulse Rate 81 73 Respiratory Rate 19 Blood Pressure 109/65 Pulse Oximetry 92 95 Oxygen Delivery Method Room Air Oxygen Flow Rate 12/31/22 21:00 12/31/22 21:00 12/31/22 21:30 Temperature Pulse Rate 68 Respiratory Rate 21 Blood Pressure 101/57 L 103/61 Pulse Oximetry 93 Oxygen Delivery Method Room Air Oxygen Flow Rate 12/31/22 21:30 12/31/22 22:00 12/31/22 22:00 Temperature Pulse Rate 67 66 Respiratory Rate 21 18 Blood Pressure 99/59 L Pulse Oximetry 93 93 Oxygen Delivery Method Room Air Room Air Oxygen Flow Rate 12/31/22 22:30 12/31/22 22:30 12/31/22 23:00 Temperature Pulse Rate 73 Respiratory Rate 22 Blood Pressure 112/61 109/67 Pulse Oximetry 95 Oxygen Delivery Method Nasal Cannula Oxygen Flow Rate 2 12/31/22 23:00 12/31/22 23:30 12/31/22 23:30 Temperature Pulse Rate 69 73 Respiratory Rate 21 26 H Blood Pressure 103/66 Pulse Oximetry 97 96 Oxygen Delivery Method Nasal Cannula Nasal Cannula Oxygen Flow Rate 2 2 Oxygen Delivery Method Nasal Cannula Oxygen Flow Rate 2 Narrative Exam Narrative: General: Patient is a jorge l female well-developed, well-nourished in no distress at this time. HEENT: Normocephalic, atraumatic, extraocular muscles intact, oral pharynx is clear and mucous membranes are moist. Neck is supple and symmetric, trachea is midline, no adenopathy, no thyroid enlargement, nontender, no masses palpated. Negative for JVD Chest: Normal AP diameter and contour without kyphoscoliosis, Equal chest rise without nasal flaring, retractions, tachypneic or labored breathing. Lungs: Auscultation of all lung [place] are clear decreased throughout, right lower lobe absent lung sounds, very shallow breathing, poor air exchange Cardio: regular rate and rhythm without murmur, rubs, or gallops, no carotid bruit, no cardiac pulsations present. Abdomen: Soft nontender, negative for organomegaly, or masses. Bowel sounds are present in all 4 quadrants without guarding or rebound, no CVA tenderness. Musculoskeletal: Muscle strength and tone are equal, no deformity, crepitus, effusions, cyanosis, clubbing or edema present. Full range of motion intact radial and pedal pulses are normal. Skin: Warm dry and intact without rashes, ulcerations or petechiae. Neuro: Alert and orientated x3, moves all extremities, sensation to touch intact, no gross deficits noted of cranial nerves. Psych: Patient has a well-kept appearance, appropriate affect, mental status attitude thought context and judgment are appropriate for age. Objective Labs 12/31/22 18:20 12/31/22 18:20 Labs: Laboratory Results - last 24 hr 12/31/22 12/31/22 12/31/22 18:20 18:20 18:20 WBC 9.9 RBC 4.42 Hgb 12.8 Hct 37.6 MCV 85.1 MCH 28.8 MCHC 33.9 RDW 13.4 Plt Count 384 Neut % (Auto) 64.5 Lymph % (Auto) 25.4 [place] % (Auto) 6.4 Eos % (Auto) 3.3 Baso % (Auto) 0.4 Neut # (Auto) 6400 Lymph # (Auto) 2500 [place] # (Auto) 600 Eos # (Auto) 300 Baso # (Auto) 0 PT 17.3 H INR 1.5 H Sodium 135 L Potassium 4.0 Chloride 106 Carbon Dioxide 24 BUN 10 Creatinine 0.65 Estimated GFR > 60 BUN/Creatinine Ratio 15.4 Glucose 134 H Lactate Calcium 9.1 Total Bilirubin 0.5 AST 24 ALT 21 Alkaline Phosphatase 75 Troponin I < 0.012 NT-Pro-B Natriuret Pep 71 Total Protein 6.7 Albumin 3.6 Globulin 3.1 Albumin/Globulin Ratio 1.2 12/31/22 18:20 WBC RBC Hgb Hct MCV MCH MCHC RDW Plt Count Neut % (Auto) Lymph % (Auto) [place] % (Auto) Eos % (Auto) Baso % (Auto) Neut # (Auto) Lymph # (Auto) [place] # (Auto) Eos # (Auto) Baso # (Auto) PT INR Sodium Potassium Chloride Carbon Dioxide BUN Creatinine Estimated GFR BUN/Creatinine Ratio Glucose Lactate 0.9 Calcium Total Bilirubin AST ALT Alkaline Phosphatase Troponin I NT-Pro-B Natriuret Pep Total Protein Albumin Globulin Albumin/Globulin Ratio Assessment & Plan Assessment & Plan narrative: Brea Dior is a 67 yr old female with a history of recent diagnosis of stage IV bronchogenic carcinoma of the lung, and bilateral PEs 12/23/2022 (ED visit 12/23/2022 acute respiratory failure, bilateral PEs, lung CA, was transferred to ). Presented to the ED with complaints painful left posterior lung/mid back pain with deep breath.? Started this afternoon, pain medication in ED improved. Patient is due to start lung cancer treatment pending cytology reports and collaboration between Dr. Richards pulmonology @ and oncology.? Patient was started on Eliquis for pulmonary embolisms. Patient admitted for new acute right pneumothorax. Pneumothorax right, acute,<5%, present on admission * Admit: 98.8?, 112/61, 73, 22 95% on room air. * CTA:Right apical pneumothorax which is new when compared with the CT dated December 23, 2022 * Dr. Rodas consulted general surgery stated that pneumothorax<5%, and given the patient is on Eliquis no chest tube is recommended * Repeat CXR in a.m. * Recommend Dr. Khan to reach out to Dr. Richards pulmonology at tomorrow to discuss patient's current hospitalization. * Incentive spirometry, encourage deep breathing, respiratory consult as needed * Manage pain Bilateral PEs, acute, present on admission * Diagnosed on 12/23/2022 * Patient on Eliquis * CTA: decreased burden of pulmonary embolus within the left pulmonary arteries and resolution of the right pulmonary emboli. * Monitor for bleeding Bronchogenic carcinoma, acute, stage IV, present on admission * Diagnosed 12/23/2022 * Managed by Dr. 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 Pleural effusion, acute, present on admission * Diagnosed 12/23/2022 * CTA: Low-density right effusion redemonstrated and unchanged * Managed by pulmonology Dr. Kaplan Overweight, moderate, acute on chronic, present on admission * As evidence by BMI 29.4 * dietary consult ordered regarding nutritional education and information for dietary, lifestyle, exercise, and weight changes. * the patient is at much higher risk for medical and surgical complications due to obesity as it relates to chronic illnesses:, and acute illness. The patient's obesity increases the difficulty and complexity of medical and/or surgical interventions, management and increases the chances of poor outcome such as morbidity and mortality as well as impaired wound healing. Code status: Full Surrogate decision maker: Yesi Arguelles-daughter DVT/VTE prophylaxis: Eliquis and SCDs Disposition: Patient admitted for observation expected length of stay not to exceed 2 midnights I have utilized all available immediate resources to obtain, update, or review the patient's current medications. I confirmed that the patient's advanced care plan is present, Code status is documented and/or surrogate decision maker is listed in the patient's medical record. I have personally reviewed patient's chart notes from PCP, specialists, diagnostic imaging, and laboratory results.
[2023-01-01 00:05] VITALS: BMI 29.4
[2023-01-01 00:25] LABS: Magnesium 2.4 mg/dL (1.6-2.3)
[2023-01-01 00:30] VITALS: BP 99/55; PULSE 71; RESP 17; TEMP 36.4; O2SAT 95
[2023-01-01 04:00] VITALS: BP 97/57; PULSE 60; RESP 16; TEMP 36.1; O2SAT 96
[2023-01-01 06:12] LABS: Add Manual Diff / Slide Review NO; Basophils Absolute Auto 0 /uL (0-100); Basophils Percent Auto 0.8 % (0-2); Eosinophils Absolute Auto 300 /uL (0-450); Eosinophils Percent Auto 5.1 % (2-4); Hematocrit 33.9 % (36-46); Hemoglobin 11.5 g/dL (12.0-16.0); Lymphocytes Absolute Auto 2200 /uL (1100-4500); Lymphocytes Percent Auto 37.5 % (25-40); Mean Corpuscular HGB Conc 33.9 % (30-36); Mean Corpuscular Volume 85.4 fL (80-100); Monocytes Absolute Auto 500 /uL (0-900); Monocytes Percent Auto 8.3 % (3-14); Neutrophils Absolute Auto 2900 /uL (1500-7000); Neutrophils Percent Auto 48.3 % (50-75); Platelet Count 301 X10^3/uL (150-400); Red Blood Cell Count 3.97 X10^6/uL (4.0-5.2); Red Cell Distribution Width 13.4 % (11.6-14.8)
[2023-01-01 06:17] LABS: INR 1.5 (0.9-1.3); Prothrombin Time 17.7 SECONDS (10.1-12.7)
--- NOTE | 2023-01-01 07:46 | DI.RAD.S_ITS ---
PROCEDURE: XR CHEST 1V INDICATIONS: right PTX seen on CT TECHNIQUE: One view of the chest was acquired. COMPARISON: [facility], CT, CT ANGIO CHEST PE PROTOCOL, 12/31/2022, 20:25. [facility], CR, XR CHEST 1V, 12/31/2022, 18:29. FINDINGS: Surgical changes and devices: None. Lungs and pleura: Right upper lobe masslike consolidation in medial right upper lobe is seen. Small to moderate right pleural effusion is again noted. Patient's known small right anterior pneumothorax is again seen measures 7.4 mm in craniocaudal dimension. No left-sided pneumothorax. Mediastinum: Mediastinal contours appear normal. Heart size is normal. Bones and chest wall: No suspicious bony lesions. Overlying soft tissues appear unremarkable. IMPRESSION: Persistent small to moderate right pleural effusion and tiny right apical pneumothorax. Dictated by: Raj Navarrete M.D. on 01/01/2023 at 8:08 Approved by: Raj Navarrete M.D. on 01/01/2023 at 8:10
[2023-01-01 08:00] VITALS: BP 106/69; PULSE 65; RESP 15; O2SAT 96
--- NOTE | 2023-01-01 08:30 | PC.NURSE ---
Day shift: Pt A&Ox4, sitting up in bed with adult daughter at bedside. VSS, pt reports taking home dose of apixaban 5 mg tablet from home prescription. This RN educated pt on use of prescriptions in hospital and the hospital policy that medications are required to be from the hospital pharmacy and ordered by provider. Provider notified. Pt verbalizes understanding on policy. Call light within reach, pt able to use to make needs known. Care ongoing.
--- NOTE | 2023-01-01 08:45 | PM.CALLCOV.1 ---
Call Coverage Note Note Date of Patient Contact: 01/01/23 Time of Patient Contact: 08:45 Narrative of Care Provided: Right PTX seen only on CT likely result of manipulations done at (biopsy). Stable pleural effusion. Repeat CXR shows no expansion. Ok to discharge home.
[2023-01-01 09:00] VITALS: TEMP 36.1
--- NOTE | 2023-01-01 09:01 | PM.DS.1 ---
History of Present Illness History of Present Illness Date Patient Seen: 01/01/23 Time Patient Seen: 09:01 Chief complaint: painful breathing, stage 4 lung ca, back pain Narrative: Brea Dior is a 67 yr old female with a history of recent diagnosis of stage IV bronchogenic carcinoma of the lung, and bilateral PEs 12/23/2022 (ED visit 12/23/2022 acute respiratory failure, bilateral PEs, lung CA, was transferred to ). Presented to the ED with complaints painful left posterior lung/mid back pain with deep breath.? Started this afternoon, pain medication in ED improved. Patient is due to start lung cancer treatment pending cytology reports and collaboration between Dr. Richards pulmonology @ and oncology.? Patient was started on Eliquis for pulmonary embolisms. Patient is not in acute respiratory failure. On admit pain medication has improved pain. patient denies headache, changes in vision, difficulty swallowing, speech impairment, weakness, numbness, tingling, difficulty with ambulation, recent falls, head injury, LOC, fever, body aches, chills, cough, recent exposure to illness, abdominal pain, nausea, vomiting, urinary incontinence/retention, dysuria, frequency, urgency, hematuria, bowel changes, constipation, incontinence, melena, rashes, recent injury, or trauma. Patient's vital signs are stable temp 98.8?, 112/61, 73, 22 95% on room air. Patient's labs are reassuringly unremarkable with the exception of INR 1.5. Lactate, troponin, BNP are all normal. I personally reviewed all imaging and EKG. EKG NSR at a rate of 80, incomplete right BBB, with nonspecific ST abnormalities unchanged from EKG on 12/23/2022. CTA:Right apical pneumothorax which is new when compared with the CT dated December 23, 2022, decreased burden of pulmonary embolus within the left pulmonary arteries and resolution of the right pulmonary emboli.? 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 Patient admitted for acute right pneumothorax. Discharge Providers Provider Date of admission: 12/31/22 23:48 Discharge Date: 01/01/23 Primary care physician: Anabell Vasquez PA-C Consults: 12/31/22 23:58 Consult to Dietitian, Adult Routine Comment: Reason For Exam: BMI 29.4, CA 01/01/23 03:57 Consult to General Surgery Routine Comment: Consulting Provider: Ivanna Rodas Reason for consultation: Pneumothorax w/bronchogenic carcinoma Has provider been notified: Yes Discharge provider: Fritz Khan DO Summary Hospital Course Discharge Diagnosis: ? Pneumothorax right, acute,<5%, present on admission Bilateral PEs, acute, present on admission Bronchogenic carcinoma, acute, stage IV, present on admission Pleural effusion, subacute (dx recently), present on admission Overweight, moderate, acute on chronic, present on admission Hospital Course: Brea Dior is a 67 yr old female with a history of recent diagnosis of stage IV bronchogenic carcinoma of the lung, and bilateral PEs 12/23/2022 (ED visit 12/23/2022 acute respiratory failure, bilateral PEs, lung CA, was transferred to ).? Presented to the ED with complaints painful left posterior lung/mid back pain with deep breath.?She was found to have a small pneumothorax on the R, likely secondary to recent thoracentesis. In discussion with family she did not have biopsies at after cytology returned positive for carcinoma. Repeat CXR was stable, and was reviewed personally, along with discussion with general surgery. With no expansion of her pneumothorax and improved symptoms, she improved more quickly than anticipated based on her presentation. She was discharged home and encouraged to follow up with her team at [facility] for ongoing management. Time Spent with Patient Time spent: Greater than 30 minutes Exam Vital Signs (past 8 hours): - 01/01/23 04:00 01/01/23 08:00 Temperature 97.0 F L Pulse Rate 60 65 Respiratory Rate 16 15 Blood Pressure 97/57 L 106/69 Pulse Oximetry 96 96 Oxygen Flow Rate 2 2 Oxygen Delivery Method Nasal Cannula Oxygen Flow Rate 2 Narrative Exam Narrative: General: no acute distress, comfortable appearing CV: RRR no m/r/g Pulm: Decreased breath sounds RLL, no wheezes rhonchi rales in other locations Ext: No edema Neuro: alert and oriented x3, no focal deficits. Objective Labs 01/01/23 06:01 12/31/22 18:20 Labs: Laboratory Results - last 24 hr 12/31/22 12/31/22 12/31/22 18:20 18:20 18:20 WBC 9.9 RBC 4.42 Hgb 12.8 Hct 37.6 MCV 85.1 MCH 28.8 MCHC 33.9 RDW 13.4 Plt Count 384 Neut % (Auto) 64.5 Lymph % (Auto) 25.4 [place] % (Auto) 6.4 Eos % (Auto) 3.3 Baso % (Auto) 0.4 Neut # (Auto) 6400 Lymph # (Auto) 2500 [place] # (Auto) 600 Eos # (Auto) 300 Baso # (Auto) 0 PT 17.3 H INR 1.5 H Sodium 135 L Potassium 4.0 Chloride 106 Carbon Dioxide 24 BUN 10 Creatinine 0.65 Estimated GFR > 60 BUN/Creatinine Ratio 15.4 Glucose 134 H Lactate Calcium 9.1 Magnesium Total Bilirubin 0.5 AST 24 ALT 21 Alkaline Phosphatase 75 Troponin I < 0.012 NT-Pro-B Natriuret Pep 71 Total Protein 6.7 Albumin 3.6 Globulin 3.1 Albumin/Globulin Ratio 1.2 12/31/22 12/31/22 01/01/23 18:20 18:20 06:01 WBC 6.0 RBC 3.97 L Hgb 11.5 L Hct 33.9 L MCV 85.4 MCH 29.0 MCHC 33.9 RDW 13.4 Plt Count 301 Neut % (Auto) 48.3 L Lymph % (Auto) 37.5 [place] % (Auto) 8.3 Eos % (Auto) 5.1 H Baso % (Auto) 0.8 Neut # (Auto) 2900 Lymph # (Auto) 2200 [place] # (Auto) 500 Eos # (Auto) 300 Baso # (Auto) 0 PT INR Sodium Potassium Chloride Carbon Dioxide BUN Creatinine Estimated GFR BUN/Creatinine Ratio Glucose Lactate 0.9 Calcium Magnesium 2.4 H Total Bilirubin AST ALT Alkaline Phosphatase Troponin I NT-Pro-B Natriuret Pep Total Protein Albumin Globulin Albumin/Globulin Ratio 01/01/23 06:01 WBC RBC Hgb Hct MCV MCH MCHC RDW Plt Count Neut % (Auto) Lymph % (Auto) [place] % (Auto) Eos % (Auto) Baso % (Auto) Neut # (Auto) Lymph # (Auto) [place] # (Auto) Eos # (Auto) Baso # (Auto) PT 17.7 H INR 1.5 H Sodium Potassium Chloride Carbon Dioxide BUN Creatinine Estimated GFR BUN/Creatinine Ratio Glucose Lactate Calcium Magnesium Total Bilirubin AST ALT Alkaline Phosphatase Troponin I NT-Pro-B Natriuret Pep Total Protein Albumin Globulin Albumin/Globulin Ratio PFSH Family History Mother Alzheimer's dementia Father Cancer Social History (Updated 01/01/23 @ 03:55 by TESSA Enriquez) household members: none Smoking Status: Never smoker alcohol intake: current substance use type: does not use Discharge Plan Discharge Plan Patient Disposition: Home Provider Discharge Comment: You were admitted to the hospital with a pneumothorax. This was small and not expanding at all on repeat imaging. You can discharge home. Please let your oncology team know about your admission, and you can have them request our records. Discharge orders & Medications Prescriptions: Continued Eliquis 5 mg tablet 5 mg PO BID Patient Comments: TAKE TWO TABLETS BY MOUTH TWICE DAILY FOR 6 DAYS, THEN TAKE ONE TABLET TWICE A DAY THEREAFTER oxycodone 5 mg tablet 5 mg PO Q6H PRN (Reason: Pain (Scale Score 4-6)) Follow up/Referrals: Anabell Vasquez PA-C [Primary Care Provider] - Discharge Health Status Multidrug resistant organism: No MDRO Diet/Activity/Treatments Diet: Diet as Tolerated and Regular Activity: As tolerated Skin/Wound/Dressing Care Report to your healthcare provider any signs of infection, such as:: increased pain Visit Report/Discharge Packet Instructions: Pneumothorax, DI for Pneumothorax Stand Alone Forms: Patient Portal/API, Stroke Signs & Symptoms Discharge Data Primary Care Provider: Anabell Vasquez Discharges patient from system. Discharge Date/Time: 01/01/23 10:10
--- NOTE | 2023-01-01 10:36 | PC.NURSE ---
Discharge: Education provided, discharge paperwork provided and signed by pt. Questions answered. IV discontinued, telemetry removed. Pt VSS, able to ambulate in room. Pt wheeled via wheelchair by this RN and adult daughter to private vehicle at approximately 10:10.
== END 2023-01-01 10:10 | disposition home or self-care (01) | DRG 199 ==
LOC: ED 22:29 → AC 01-01 00:08
PROVIDERS: Admitting Provider Nurse Practitioner Family; Emergency Provider Emergency Medicine; PCP Student in an Organized Health Care Education/Training Program; Visit Provider Nurse Practitioner Family
DX: J93.9 Pneumothorax, unspecified (principal); I26.99 Other pulmonary embolism without acute cor pulmonale; J90 Pleural effusion, not elsewhere classified; C10.4 Malignant neoplasm of branchial cleft; E66.3 Overweight; Z79.01 Long term (current) use of anticoagulants; Z68.29 Body mass index [BMI] 29.0-29.9, adult
CPT/HCPCS: 36415; 71045; 71275; 80053; 83605; 83735; 83880; 84484; 85025; 85610; 93005; 99285; Q9967

== ENCOUNTER → 2023-02-09 12:44 | Outpatient (CLI) | payer OTHER, SELFPAY ==
[2023-02-09 13:38] LABS: Add Manual Diff / Slide Review NO; Basophils Absolute Auto 0 /uL (0-100); Basophils Percent Auto 0.3 % (0-2); Eosinophils Absolute Auto 400 /uL (0-450); Eosinophils Percent Auto 5.6 % (2-4); Hematocrit 40.7 % (36-46); Hemoglobin 13.6 g/dL (12.0-16.0); Lymphocytes Absolute Auto 1700 /uL (1100-4500); Lymphocytes Percent Auto 26.7 % (25-40); Mean Corpuscular HGB Conc 33.4 % (30-36); Mean Corpuscular Hemoglobin 28.9 PG (26-34); Mean Corpuscular Volume 86.5 fL (80-100); Monocytes Absolute Auto 400 /uL (0-900); Monocytes Percent Auto 5.9 % (3-14); Neutrophils Absolute Auto 3900 /uL (1500-7000); Neutrophils Percent Auto 61.5 % (50-75); Platelet Count 158 X10^3/uL (150-400); Red Blood Cell Count 4.71 X10^6/uL (4.0-5.2); Red Cell Distribution Width 14.7 % (11.6-14.8); White Blood Cell Count 6.3 X10^3/uL (4.5-11.0)
[2023-02-09 14:20] LABS: Alanine Aminotransferase 12 IU/L (<35); Albumin Globulin Ratio 1.3 (1.0-2.8); Alkaline Phosphatase 71 U/L (38-126); Aspartate Aminotransferase 22 IU/L (14-36); Bilirubin Total 0.6 mg/dL (0.2-1.3); Blood Urea Nitrogen 9 mg/dL (7-17); Calcium 9.5 mg/dL (8.4-10.2); Carbon Dioxide 26 mmol/L (22-32); Chloride 104 mmol/L (98-107); Estimated Glomerular Filt Rate > 60 mL/min (>60); Glucose 102 mg/dL (80-110); HEMOLYSIS < 15 (0-50); Potassium 4.1 mmol/L (3.4-5.1); Sodium 135 mmol/L (137-145)
[2023-02-11 11:19] LABS: Acetylcholine Receptor Bind AB <0.03 nmol/L (0.00-0.24)
== END ==
PROVIDERS: PCP Student in an Organized Health Care Education/Training Program; Referring Provider Psychiatry & Neurology Neurology; Visit Provider Psychiatry & Neurology Neurology
DX: H53.2 Diplopia (principal); C34.90 Malignant neoplasm of unspecified part of unspecified bronchus or lung
CPT/HCPCS: 36415; 80053; 83519; 85025

== ENCOUNTER → 2023-02-12 08:56 | Outpatient (CLI) | payer OTHER, SELFPAY ==
--- NOTE | 2023-02-12 | DI.RAD.S_ITS ---
PROCEDURE: XR CHEST 2V INDICATIONS: Malignant neoplasm of unspecified part of unspecified bronch TECHNIQUE: 2 views of the chest were acquired. COMPARISON: [facility], CT, CT ANGIO CHEST PE PROTOCOL, 12/31/2022, 20:25. [facility], CR, XR CHEST 1V, 01/01/2023, 7:42. [facility], CR, XR CHEST 1V, 12/31/2022, 18:29. FINDINGS: Surgical changes and devices: None. Lungs and pleura: Large right pleural effusion, increased. Streaky opacity at the right upper lobe. Right upper lobe mass is less conspicuous. No left pleural effusion. Left lung is clear. Mediastinum: Mediastinal contours are similar. Heart size is normal. Bones and chest wall: No suspicious bony abnormalities. Soft tissues appear unremarkable. IMPRESSION: Large right pleural effusion, increased. Right lung atelectasis. Right upper lobe mass is less conspicuous. Dictated by: Americo Luther M.D. on 02/12/2023 at 9:44 Approved by: Americo Luther M.D. on 02/12/2023 at 9:48
== END ==
PROVIDERS: PCP Student in an Organized Health Care Education/Training Program; Referring Provider Nurse Practitioner; Visit Provider Nurse Practitioner
DX: C34.90 Malignant neoplasm of unspecified part of unspecified bronchus or lung (principal); J90 Pleural effusion, not elsewhere classified; J98.11 Atelectasis
CPT/HCPCS: 71046

== ENCOUNTER → 2023-02-23 15:22 | Outpatient (CLI) | payer OTHER, SELFPAY ==
[2023-02-23 16:08] LABS: Add Manual Diff / Slide Review NO; Basophils Absolute Auto 0 /uL (0-100); Basophils Percent Auto 0.5 % (0-2); Eosinophils Absolute Auto 200 /uL (0-450); Eosinophils Percent Auto 3.6 % (2-4); Hematocrit 37.2 % (36-46); Hemoglobin 12.2 g/dL (12.0-16.0); Lymphocytes Absolute Auto 1500 /uL (1100-4500); Mean Corpuscular HGB Conc 32.7 % (30-36); Mean Corpuscular Hemoglobin 28.1 PG (26-34); Mean Corpuscular Volume 85.9 fL (80-100); Monocytes Absolute Auto 400 /uL (0-900); Monocytes Percent Auto 7.8 % (3-14); Neutrophils Absolute Auto 2500 /uL (1500-7000); Neutrophils Percent Auto 55.1 % (50-75); Platelet Count 149 X10^3/uL (150-400); Red Blood Cell Count 4.33 X10^6/uL (4.0-5.2); Red Cell Distribution Width 14.1 % (11.6-14.8); White Blood Cell Count 4.6 X10^3/uL (4.5-11.0)
[2023-02-23 16:31] LABS: Alanine Aminotransferase 10 IU/L (<35); Albumin 3.7 g/dL (3.5-5.0); Albumin Globulin Ratio 1.4 (1.0-2.8); Alkaline Phosphatase 56 U/L (38-126); Aspartate Aminotransferase 21 IU/L (14-36); BUN Creatinine Ratio 18.1 (6-22); Bilirubin Total 0.4 mg/dL (0.2-1.3); Blood Urea Nitrogen 13 mg/dL (7-17); Calcium 9.5 mg/dL (8.4-10.2); Carbon Dioxide 25 mmol/L (22-32); Chloride 105 mmol/L (98-107); Estimated Glomerular Filt Rate > 60 mL/min (>60); Globulin 2.7 g/dL (1.7-4.1); Glucose 88 mg/dL (80-110); HEMOLYSIS < 15 (0-50); Potassium 4.1 mmol/L (3.4-5.1); Sodium 136 mmol/L (137-145); Total Protein 6.4 g/dL (6.3-8.2)
== END ==
PROVIDERS: PCP Student in an Organized Health Care Education/Training Program; Referring Provider Nurse Practitioner; Visit Provider Nurse Practitioner
DX: C34.90 Malignant neoplasm of unspecified part of unspecified bronchus or lung (principal)
CPT/HCPCS: 36415; 80053; 85025

== ENCOUNTER 2023-03-18 17:21 | Emergency (ER) | payer OTHER, SELFPAY ==
[2023-03-18 17:25] VITALS: BP 163/79; PULSE 80; RESP 24; TEMP 36.8; O2SAT 96; BMI 28.0
--- NOTE | 2023-03-18 17:30 | DI.RAD.S_ITS ---
PROCEDURE: XR CHEST 1V INDICATIONS: Shortness of breath TECHNIQUE: One view of the chest was acquired. COMPARISON: [facility], CR, XR CHEST 2V, 02/12/2023, 9:04. FINDINGS: Surgical changes and devices: None. Lungs and pleura: Lungs are clear. No pneumothorax. No change in moderate right pleural effusion. Mediastinum: Mediastinal contours appear normal. Heart size is normal. Bones and chest wall: No suspicious bony lesions. Overlying soft tissues appear unremarkable. IMPRESSION: No change in moderate right pleural effusion. Dictated by: Yuval Raymond M.D. on 03/18/2023 at 17:53 Approved by: Yuval Raymond M.D. on 03/18/2023 at 17:54
[2023-03-18 17:36] VITALS: BP 130/73; PULSE 74; RESP 16; O2SAT 96
--- NOTE | 2023-03-18 17:38 | ED.SOB ---
HPI - SOB/Dyspnea General Chief Complaint: Shortness of Breath/Dyspnea Stated Complaint: difficulty breathing Time Seen by Provider: 03/18/23 17:24 Source: patient and family Mode of arrival: Ambulatory Limitations: no limitations History of Present Illness HPI Narrative: 67-year-old female with history stage IV lung cancer presents for shortness of breath. Patient states that she will occasionally fill up with fluid and has to have a thoracentesis. She is here today just for a chest x-ray to check the level of fluid in her lungs. She states that her right lung is usually 2/3 full of fluid regularly Related Data Home Medications Medication Instructions Recorded Confirmed apixaban 5 mg tablet (Eliquis) 5 mg PO BID 01/01/23 01/01/23 oxycodone 5 mg tablet 5 mg PO Q6H PRN Pain (Scale Score 01/01/23 01/01/23 4-6) Allergies Allergy/AdvReac Type Severity Reaction Status Date / Time No Known Drug Allergies Allergy Verified 03/18/23 17:30 Review of Systems Review of Systems Narrative: CONSTITUTIONAL- Denies: fever, chills, fatigue HEENT- Denies: sore throat, nosebleed, vision changes RESPIRATORY-reports: Shortness of breath Denies: cough, wheezing CARDIAC- Denies: chest pain, edema, orthopnea GI- Denies: abdominal pain, nausea, vomiting, constipation, diarrhea - Denies: frequency, dysuria, hematuria, flank pain MSK- Denies: extremity pain, extremity swelling, joint pain, joint swelling SKIN- Denies: rash, itching, burn, swelling NEUROLOGICAL- Denies: headache, numbness, weakness, dizziness PSYCHIATRIC- Denies: anxiety, depression, suicidal ideation, homicidal ideation Patient History Family History Mother Alzheimer's dementia Father Cancer Social History (Updated 01/01/23 @ 03:55 by TESSA Enriquez) household members: none Smoking Status: Never smoker alcohol intake: current substance use type: does not use Smoking Status: Never smoker alcohol intake frequency: holidays/special occasions only Substance Use Type: does not use Exam Initial Vital Signs Initial Vital Signs: Vital Signs Temperature 98.3 F 03/18/23 17:25 Pulse Rate 80 03/18/23 17:25 Respiratory Rate 24 03/18/23 17:25 Blood Pressure 163/79 H 03/18/23 17:25 Pulse Oximetry 96 03/18/23 17:25 Oxygen Delivery Method Room Air 03/18/23 17:25 Const: Awake, alert, no acute distress, nontoxic appearing Eyes: PERRL, EOMI, conjunctiva normal ENT: Atraumatic, dentition normal, mucous membranes moist Cardiac: regular rate, regular rhythm RESP: unlabored, decreased breath sounds right lower lobe GI: Atraumatic, soft, nontender, nondistended, no rebound, no guarding MSK: Atraumatic, full range of motion, pulses equal Skin: Warm, Dry, intact, no rashes Neuro: AO x3, CN II-XII grossly intact, moves all extremities Psych: affect normal, mood normal, not suicidal, not homicidal Course Orders Ordered: ED Orders 03/18/23 17:30 XR chest 1V Stat Complete Blood Count AUTO DIFF Stat Comprehensive Metabolic Panel Stat Lactate (Lactic Acid) Stat NT-proBNP (BNP-Adult 18+) Stat Prothrombin Time INR Stat Troponin I Stat Reevaluation(s) Reevaluation #1: XR reviewed with patient and daughter. Patient states that it is actually improved from her previous x-rays, of which she has record on her phone. I had a lengthy discussion with patient and her daughter at bedside. I stated that I was happy to do as much or as little of a workup as she would like for her shortness of breath. Patient states that she was told to come in because there was concern that her shortness of breath was caused by strain from her heart. I stated that I could not rule out strain on the heart without doing laboratory work. Patient states that she has been poked enough times for her blood work and she would prefer to not have any blood work done. She states that she has an upcoming appointment with her oncologist and her radiation oncologist within the week, she states that she will get all of her blood work then. She is reassured that her vital signs are normal in the emergency department and that her pleural effusion seems to be improved from prior. I strongly counseled the patient that if she feels worse or if anything changes that she and her daughter return immediately to the emergency department for repeat evaluation. Vital Signs Vital signs: Vital Signs - 8 hr 03/18/23 17:25 03/18/23 17:36 03/18/23 18:00 Temperature 98.3 F Pulse Rate 80 74 Respiratory Rate 24 16 Blood Pressure 163/79 H 130/73 133/79 Pulse Oximetry 96 96 Oxygen Delivery Method Room Air 03/18/23 18:00 Temperature Pulse Rate 71 Respiratory Rate 21 Blood Pressure Pulse Oximetry 94 Oxygen Delivery Method Room Air MDM - SOB/Dyspnea Differential Diagnosis Differential diagnosis: Likely congestive heart failure, community acquired pneumonia and asthma with exacerbation Discharge Plan Departure Patient Disposition: Home Clinical Impression: Pleural effusion, Dyspnea, Metastatic cancer Instructions: DI for Pleural Effusion Prescriptions: No Action Eliquis 5 mg tablet 5 mg PO BID Patient Comments: TAKE TWO TABLETS BY MOUTH TWICE DAILY FOR 6 DAYS, THEN TAKE ONE TABLET TWICE A DAY THEREAFTER oxycodone 5 mg tablet 5 mg PO Q6H PRN (Reason: Pain (Scale Score 4-6)) Referrals: Anabell Vasquez PA-C [Primary Care Provider] - Stand Alone Forms: Patient Portal/API
--- NOTE | 2023-03-18 17:57 | PC.NURSE ---
Patient and daughter requested no IV at this time due to upcoming lab appointments and wanting to minimize poking.
[2023-03-18 18:00] VITALS: BP 133/79; PULSE 71; RESP 21; O2SAT 94
== END 2023-03-18 18:14 | disposition home or self-care (01) ==
PROVIDERS: Emergency Provider Emergency Medicine; PCP Student in an Organized Health Care Education/Training Program
DX: J90 Pleural effusion, not elsewhere classified (principal); R06.00 Dyspnea, unspecified; C79.9 Secondary malignant neoplasm of unspecified site; Z79.01 Long term (current) use of anticoagulants
CPT/HCPCS: 71045; 93005; 99283; 99284

== ENCOUNTER 2024-09-30 21:33 | Emergency (ER) | payer OTHER, SELFPAY ==
[2024-09-30 21:35] VITALS: BP 136/75; PULSE 79; RESP 18; TEMP 36.5; O2SAT 99; BMI 27.0
--- NOTE | 2024-09-30 21:40 | DI.RAD.S_ITS ---
PROCEDURE: XR WRIST RT MIN 3V INDICATIONS: fall/wrist pain TECHNIQUE: 3 views of the wrist were acquired. COMPARISON: None. FINDINGS: Bones: Comminuted intra-articular distal radial fracture noted with mild angulation of the distal fracture fragment. Slightly distracted ulnar styloid fracture. Text osteopenia degenerative intercarpal changes. Soft tissues: No suspicious soft tissue calcifications. IMPRESSION: Comminuted angulated distal radial fracture with intra-articular involvement. Slightly distracted ulnar styloid fracture Approved by: Marcos Crews M.D. on 09/30/2024 at 21:21
--- NOTE | 2024-09-30 23:37 | ED.GENADULT ---
HPI - General Adult General Chief complaint: Extremity Injury, Upper Stated complaint: rt arm injury, poss broken wrist Time Seen by Provider: 09/30/24 22:05 Source: patient Mode of arrival: Ambulatory History of Present Illness HPI narrative: 69-year-old woman with a history of stage IV lung cancer, anticoagulated who had a fall on an outstretched right hand with the acute wrist pain. Comes in for further evaluation. She has no other injuries or concerns at this time. Related Data Home Medications Medication Instructions Recorded Confirmed oxycodone 5 mg tablet 5 mg PO Q6H PRN Pain (Scale Score 01/01/23 08/21/24 4-6) apixaban 5 mg tablet (Eliquis) 2.5 mg PO BID 08/21/24 08/21/24 osimertinib 80 mg tablet (Tagrisso) 80 mg PO DAILY 08/21/24 08/21/24 Allergies Allergy/AdvReac Type Severity Reaction Status Date / Time No Known Drug Allergies Allergy Verified 08/21/24 11:43 Review of Systems Review of Systems Narrative: Pertinent positive and negative findings as per HPI Patient History Medical History Hearing decreased Skin cancer Rosacea Abnormal chest xray (~2022) Tinnitus (~2000) Ovarian cyst (~2022) Kidney stones (~1995) Melanoma (~2023) Bronchogenic carcinoma (~2022) Surgical History Anesthesia History of tonsillectomy and adenoidectomy (~1958) History of tubal ligation (~01/1990) History of thoracentesis History of surgery (~03/2023) Family History Mother Alzheimer's dementia Father Cancer Brother Alcoholic Smoker Family estrangement Sister Knee pain Hip pain Grandfather History of heart disease Social History household members: none alcohol intake: current substance use type: does not use Smoking Status: Never smoker alcohol intake frequency: holidays/special occasions only Exam Initial Vital Signs Initial Vital Signs: Vital Signs Temperature 97.7 F 09/30/24 21:35 Pulse Rate 79 04/12/25 21:35 Respiratory Rate 18 09/30/24 21:35 Blood Pressure 136/75 09/30/24 21:35 Pulse Oximetry 99 09/30/24 21:35 Oxygen Delivery Method Room Air 09/30/24 21:35 General: Alert appropriate in no acute distress Respiratory: Able to speak in full sentences, no obvious respiratory distress Skin: No obvious rashes, warm and dry Neurologic: Grossly intact no obvious asymmetries or abnormalities Psych: appropriate insight and affect, cooperative Extremity: Slight deformity and tenderness of the right wrist. She is neurovascularly intact distal to that. No abrasions or contusions Course Orders Ordered: ED Orders 09/30/24 21:40 XR wrist RT min 3V Stat Vital Signs Vital signs: Vital Signs - 8 hr 09/30/24 21:35 Temperature 97.7 F Pulse Rate 79 Respiratory Rate 18 Blood Pressure 136/75 Pulse Oximetry 99 Oxygen Delivery Method Room Air Medical Decision Making MDM Narrative Medical decision making narrative: CC: Fall on outstretched hand Complicating co-morbidities: Stage IV lung cancer Data collected from: patient, friend Differential considered: Fracture, contusion, open fracture Exam documented above, pertinent findings include: Wrist tenderness, neurovascularly intact Imaging studies independently reviewed: Bones: Comminuted intra-articular distal radial fracture noted with mild angulation of the distal fracture fragment. Slightly distracted ulnar styloid fracture. Text osteopenia degenerative intercarpal changes. Soft tissues: No suspicious soft tissue calcifications. IMPRESSION: Comminuted angulated distal radial fracture with intra-articular involvement. Slightly distracted ulnar styloid fracture Approved by: Marcos Crews M.D. on 09/30/2024 at 21:21 Consultations: Sugar-tong splint placed on her right arm with right sling placed. She was neurovascularly intact pre and post placement. She is feeling comfortable with the immobility of the splint Discussion: 69-year-old woman with fall on an outstretched wrist sustaining comminuted angulated distal radius fracture with intra-articular involvement and slightly distracted ulnar styloid fracture. She is splinted, she has adequate pain medication at home secondary to lung cancer pain and declines any additional medication here in the emergency department. Recommended she follow up with [facility] for definitive treatment of her wrist fracture. She is given instructions and reasons to return to the emergency department. She is safe for discharge Discharge Plan Departure Patient Disposition: Home Clinical Impression: Closed fracture of right wrist Qualifiers: Encounter type: initial encounter Qualified Code(s): S62.101A - Fracture of unspecified carpal bone, right wrist, initial encounter for closed fracture Instructions: DI for Wrist Fracture Activity Restrictions/Additional Instructions: Thank you for coming in today I am sorry that you had this fall. You did break your right wrist and you are going to need to see an orthopedic surgeon for definitive treatment of this wrist. You may need surgical intervention, the surgeon will likely take additional x-rays with your follow up appointment and help decide whether this is necessary or not. You can use your Tylenol and oxycodone that you have available at home to use for pain control. Keeping the arm elevated and ice on the outside of the splint may also help with pain and swelling I would suggest calling [facility], office phone number is [phone]. Dr. Soto is our on-call orthopedic surgeon [facility]. Please explain that you are in the emergency department, had a fall on an outstretched wrist and have a wrist fracture that needs definitive treatment and follow up. If you find that you are getting worse or develop any new symptoms, please feel free to return to the emergency department for further evaluation. Prescriptions: No Action Tagrisso 80 mg tablet 80 mg PO DAILY oxycodone 5 mg tablet 5 mg PO Q6H PRN (Reason: Pain (Scale Score 4-6)) Eliquis 5 mg tablet 2.5 mg PO BID Referrals: Tami Lynn MD [Primary Care Provider] - Stand Alone Forms: Patient Portal/API/Survey
[2024-09-30 23:41] VITALS: BP 117/63; PULSE 74; RESP 16; O2SAT 96
== END 2024-09-30 23:48 | disposition home or self-care (01) ==
PROVIDERS: Emergency Provider Emergency Medicine; PCP Family Medicine
DX: S52.571A Other intraarticular fracture of lower end of right radius, initial encounter for closed fracture (principal); S52.611A Displaced fracture of right ulna styloid process, initial encounter for closed fracture; W18.30XA Fall on same level, unspecified, initial encounter; Z79.01 Long term (current) use of anticoagulants; Z85.118 Personal history of other malignant neoplasm of bronchus and lung
CPT/HCPCS: 29125; 73110; 99283

== ENCOUNTER → 2024-11-23 09:02 | Outpatient (CLI) | payer OTHER, SELFPAY ==
--- NOTE | 2024-11-23 09:06 | DI.ECHO.S_ITS ---
[facility] : : [address] : : [place] : : [id number] : : Phone: [phone] Echocardiogram Report + + :Name: JENNY BANGURA Study Date: 11/23/2024 Height: 69 in : :Hospital ReadingLocation: Weight: 188 lb : : Gender: Female BSA: 2.0 m2 : :: 1955 Age: 69 yrs BP: 108/67 mmHg: :Reason For Study: BRONCHOGENIC CARCINOMA, PE : :Ordering Physician: DEEPA, : :RADHA Zamora Performed By: Gely Jensen : :Referring: RADHA ARENAS : + + Interpretation Summary The ejection fraction is estimated to be 60-65%. Left ventricular global longitudinal strain average is -21.9%. Diastolic parameters suggest probable normal left ventricular diastolic function and normal filling pressures. The left atrium is mildly dilated. The right ventricle is normal in size and function. No significant valvular abnormalities. Pulmonary artery pressures cannot be estimated because of the lack of a measurable TR jet velocity but the IVC suggests a CVP of around 3 mmHg. Procedure: A two-dimensional transthoracic echocardiogram with color flow and Doppler was performed. The study quality was technically adequate. There is no prior echocardiogram noted for this patient. The patient was in sinus bradycardia with heart rates between 51-57 bpm during the exam. Left Ventricle: The left ventricle is normal in size and wall thickness. The ejection fraction is estimated to be 60-65%. Left ventricular global longitudinal strain average is -21.9%. Diastolic parameters suggest probable normal left ventricular diastolic function and normal filling pressures. Right Ventricle: The right ventricle is normal in size and function. Atria: The left atrium is mildly dilated. Right atrial size is normal. There is no Doppler evidence for an interatrial shunt. Mitral Valve: The mitral valve leaflets appear to open well. There is trace mitral regurgitation. Aortic Valve: The aortic valve is trileaflet. The aortic valve opens well. There is no aortic valve stenosis. There is trace aortic regurgitation. Tricuspid Valve: The tricuspid valve leaflets are thin and pliable. There is a trace or physiologic amount of tricuspid regurgitation. Pulmonary artery pressures cannot be estimated because of the lack of a measurable TR jet velocity but the IVC suggests a CVP of around 3 mmHg. Pulmonic Valve: The pulmonic valve is not well seen, but is grossly normal. There is a trace or physiologic amount of pulmonic regurgitation. Great Vessels: The aortic root is normal size. The ascending aorta could not be visualized. The IVC is of normal diameter and collapses greater than 50% with a sniff. This suggests a low right atrial pressure of 3 mm Hg. Pericardium/ Pleura There is no pericardial effusion. There is no pleural effusion. MMode/2D Measurements & Calculations LVIDd: 4.5 cm LVOT diam: 2.0 cm LVIDs: 3.0 cm Ao root diam: 3.4 cm FS: 32.6 % Ao Arch Diam (Prox Trans): 3.3 cm IVSd: 0.90 cm LVPWd: 0.77 cm LV kapadia. diameter/BSA (cm/m^2): 2.2 LV sys. diameter/BSA (cm/m^2): 1.5 LA A2 area: 24.7 cm2 RA long axis: 5.2 cm LA A4 area: 21.1 cm2 RA area: 18.9 cm2 LA length (vol): 5.5 cm RA vol: 57.8 ml LA vol: 80.7 ml RA : 28.7 ml/m2 LA vol index: 40.1 ml/m2 IVC diam: 1.6 cm RVD1 (basal): 4.0 cm RVD2 (mid): 3.0 cm TAPSE: 2.1 cm Doppler Measurements & Calculations Ao V2 max: 129.6 cm/sec LVOT Max Jairo: 119.7 cm/sec Ao V2 mean: 86.0 cm/sec LV V1 max P.7 mmHg Ao max P.7 mmHg LV V1 VTI: 27.0 cm Ao mean P.4 mmHg GENEVIEVE(I,D): 3.1 cm2 Ao V2 VTI: 28.2 cm GENEVIEVE(V,D): 3.0 cm2 sev ratio: 0.95 GENEVIEVE indexed to BSA (cm^2/m^2): 1.5 MV E max jairo: 64.4 cm/sec TR max jairo: 230.4 cm/sec MV A max jairo: 45.9 cm/sec TR max P.2 mmHg MV E/A: 1.4 PA V2 max: 89.3 cm/sec Med Peak E' Jairo: 12.7 cm/sec PA V2 mean: 65.5 cm/sec E/E' med: 5.1 PA mean P.8 mmHg Lat Peak E' Jairo: 13.5 cm/sec PA pr(Accel): 31.0 mmHg E/E' lat: 4.8 E/e' average: 4.9 MV dec time: 0.20 sec SV(LVOT): 86.3 ml Reading Physician:02:20 PM
--- NOTE | 2024-11-23 10:24 | EKG_ITS ---
[facility] [id number] [place] [id number] Test Date: 2024-11-23 Pat Name: Brea Dior Department: DEFAULT Room: Gender: Female Software Configuration Analyst: LANA : 1955 Requested By: Order Number: [id number] Reading MD: Tam Fraire Measurements Intervals [place] Rate: 53 P: 67 [place]: 190 QRS: -4 QRSD: 104 T: 56 QT: 426 QTc: 399 Interpretive Statements Sinus bradycardia Incomplete right bundle branch block Electronically Signed On 11-23-2024 19:02:36 PDT by Tam Fraire
== END ==
PROVIDERS: PCP Family Medicine; Referring Provider Family Medicine; Visit Provider Family Medicine
DX: C34.90 Malignant neoplasm of unspecified part of unspecified bronchus or lung (principal); I26.99 Other pulmonary embolism without acute cor pulmonale; J93.9 Pneumothorax, unspecified
CPT/HCPCS: 93005; 93306